=== PATIENT | male | born 1970 | race Caucasian/White ===

== ENCOUNTER 2020-09-30 15:17 | Inpatient (IN) | payer BC ==
[2020-09-30] MEDS ORDERED: Sodium Chloride 0.9% 10 ML Syringe FLUSH PRN (16:03)
[2020-09-30] MEDS ORDERED: Acetaminophen 325 MG Tab PO ONE (16:04)
--- NOTE | 2020-09-30 16:06 | EDM.PDOC ---
ED HPI GENERAL MEDICAL PROBLEM - General Chief Complaint: Fever Stated Complaint: SOB,FEVER,COUGH Time Seen by Provider: 09/30/20 16:01 Source of Information: Reports: Patient History Limitations: Reports: No Limitations - History of Present Illness INITIAL COMMENTS - FREE TEXT/NARRATIVE: 49-year-old male presents to the ED for evaluation of persistent fever post COVID-19 illness. Patient was diagnosed COVID-19 positive on September 16. He developed nasal congestion mild sore throat paroxysmal nonproductive cough generalized myalgia headache , fatigue and loss of appetite. He has not been at work for 14 days. He continues to run a fever particularly worse the last 48 hours. Mild chills after getting out of the shower this morning. Still has a mild nonproductive cough. He was seen in the clinic by Dr. Tamayo on September 24. Came off quarantine on September 28. The chest x- ray done at that time was negative for pneumonia. Patient was treated with cough medicine and albuterol metered-dose inhaler. He states his appetite has been good. He has had no diarrhea. He has no skin ulcers or sores. Up until Covid 19 illness he has been healthy. Onset: Sudden Onset Date: 09/16/20 (Diagnosed with COVID-19 illness.) Duration: Day(s):, Constant, Getting Worse (Versus persisting.) Location: Reports: Generalized (Normalized myalgia with headache), Other (High fever as high as 103 degrees.) Quality: Reports: Ache Severity: Moderate (Mild generalized myalgia.) Improves with: Reports: Medication (Fever come down slightly with Motrin but he had Motrin 2 hours before coming to the ED and he feels like he is 103 degrees on exam.) Worsens with: Reports: None Context: Denies: Activity, Exercise, Lifting, Sick Contact, Trauma, Other Associated Symptoms: Reports: Cough, Fever/Chills (Persistent high fever), Headaches ( occasional chills.), Malaise. 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 Motrin 2 hours before coming to the ED.) - Related Data Allergies Allergy/AdvReac Type Severity Reaction Status Date / Time No Known Allergies Allergy Verified 09/30/20 15:33 Past Medical History HEENT History: Reports: Impaired Vision Cardiovascular History: Reports: Hypertension Respiratory History: Reports: None Gastrointestinal History: Reports: None Genitourinary History: Reports: None Musculoskeletal History: Reports: None Neurological History: Reports: None Psychiatric History: Reports: None Endocrine/Metabolic History: Reports: None Immunologic History: Reports: None Oncologic (Cancer) History: Reports: None Dermatologic History: Reports: None - Infectious Disease History Infectious Disease History: Reports: Chicken Pox, Novel Coronavirus - Past Surgical History HEENT Surgical History: Reports: Adenoidectomy, Oral Surgery, Tonsillectomy GI Surgical History: Reports: None Social & Family History - Family History Family Medical History: No Pertinent Family History - Tobacco Use Tobacco Use Status *Q: Never Tobacco User - Caffeine Use Caffeine Use: Reports: None - Recreational Drug Use Recreational Drug Use: No - Living Situation & Occupation Living situation: Reports: Occupation: Employed ED ROS GENERAL - Review of Systems Review Of Systems: See Below Constitutional: Reports: Fever, Chills, Malaise, Weakness, Fatigue. Denies: Decreased Appetite HEENT: Reports: No Symptoms Respiratory: Reports: Shortness of Breath, Wheezing, Cough. Denies: Pleuritic Chest Pain, Sputum, Hemoptysis Cardiovascular: Reports: Chest Pain (Patient lightheadedness from coughing so hard.), Lightheadedness. Denies: No Symptoms, Blood Pressure Problem, Claudication, Dyspnea on Exertion, Edema, Orthopnea, Palpitations (Upper mid chest from coughing so much.) Endocrine: Reports: Fatigue GI/Abdominal: Reports: No Symptoms. Denies: Constipation, Diarrhea : Reports: No Symptoms Musculoskeletal: Reports: No Symptoms Skin: Reports: No Symptoms Neurological: Reports: Headache (Vaginal headaches.) Psychiatric: Reports: No Symptoms Hematologic/Lymphatic: Reports: No Symptoms Immunologic: Reports: No Symptoms ED EXAM, GENERAL - Physical Exam Exam: See Below Exam Limited By: No Limitations General Appearance: Alert, WD/WN, No Apparent Distress, Other (Very warm palpation such as 103 degrees clinically. Nurses occurred temperature is 37.5 but he feels much warmer than this. Heart rate is 105 at the bedside respiratory it is 28 with O2 sats of 94% on room air.) Eye Exam: Bilateral Eye: Normal Inspection (No scleral icterus or blepharal pallor.), PERRL Ears: Normal TMs Throat/Mouth: Normal Inspection, Normal Lips, Normal Oropharynx ( The remainder the oropharynx shows no signs of infection.), Other (Tongue is coated with a white substance like Maalox but he can remember anything that he would have eaten recently.) Head: Atraumatic, Normocephalic Neck: Normal Inspection, Supple, Non-Tender, Full Range of Motion. No: Carotid Bruit, Lymphadenopathy (L), Lymphadenopathy (R) Respiratory/Chest: No Respiratory Distress, Lungs Clear, Normal Breath Sounds, No Accessory Muscle Use, Chest Non-Tender, Rales (He has coarse crackles rales at both lung bases slightly worse on the left as compared to the right.). No: Rhonchi, Wheezing Cardiovascular: Normal Peripheral Pulses, No Edema, No Gallop (Resting tachycardia at the bedside 105 to 110/min.), No JVD, No Murmur, No Rub, Tachycardia Peripheral Pulses: 3+: Carotid (L), Carotid (R), Posterior Tibial (L), Posterior Tibial (R), Dorsalis Pedis (L), Dorsalis Pedis (R) GI/Abdominal: Normal Bowel Sounds, Soft, Non-Tender, No Organomegaly, No Mass, Pelvis Stable (Male) Exam: No Hernia, Normal Inspection Rectal (Males) Exam: Normal Exam Back Exam: Normal Inspection, Full Range of Motion Extremities: Normal Inspection, Normal Range of Motion, Non-Tender, No Pedal Edema Neurological: Alert, Oriented, CN II-XII Intact, Normal Cognition Psychiatric: Normal Affect, Normal Mood Skin Exam: Warm, Dry, Intact, Normal Color, No Rash #1 Interpretation EKG Date: 09/30/20 Time: 15:46 Rhythm: Other (Sinus tachycardia) Rate (Beats/Min): 105 [place]: LAD-Left [place] Deviation (Mild left axis deviation -13 degrees) P-Wave: Present QRS: Other (Early R wave transition consider right ventricular hypertrophy versus septal hypertrophy pattern) ST-T: Other (T wave flattening aVL nonspecific finding) QT: Normal EKG Interpretation Comments: Borderline ECG Course - Vital Signs Last Recorded V/S: Last Vital Signs Temp 37.5 C 09/30/20 15:37 Pulse 111 H 09/30/20 15:37 Resp 28 H 09/30/20 15:37 BP 128/78 09/30/20 15:37 Pulse Ox 93 L 09/30/20 15:37 - Orders/Labs/Meds Orders: Active Orders 24 hr Category Date Time Status EKG Documentation Completion [RC] STAT Care 09/30/20 16:01 Active Oxygen Therapy [RC] ASDIRECTED Care 09/30/20 16:32 Active Peripheral IV Care [RC] . DIRECTED Care 09/30/20 16:03 Active ABG [BLOOD GAS ARTERIAL] [BG] Stat Lab 09/30/20 16:23 Ordered CULTURE BLOOD [BC] Stat Lab 09/30/20 16:27 Received CULTURE BLOOD [BC] Stat Lab 09/30/20 16:40 Received URINALYSIS W/MICROSCOPIC [UA W/MICROSCOPIC] [URIN] Stat Lab 09/30/20 16:03 Ordered Sodium Chloride 0.9% [Normal Saline] 100 ml Med 09/30/20 17:15 Active IV ASDIRECTED Sodium Chloride 0.9% [Saline Flush] Med 09/30/20 17:15 Active 10 ml FLUSH ASDIRECTED Sodium Chloride 0.9% [Saline Flush] Med 09/30/20 16:03 Active 10 ml FLUSH ASDIRECTED PRN Blood Culture x2 Reflex Set [OM.PC] Stat Oth 09/30/20 16:03 Ordered Peripheral IV Insertion Adult [OM.PC] Stat Oth 09/30/20 16:03 Ordered Medication Orders Sodium Chloride (Normal Saline) 100 mls @ 60 mls/hr IV ASDIRECTED LEAH Last Admin: 09/30/20 17:40 Dose: 60 mls/hr Documented by: RAFAEL Sodium Chloride (Sodium Chloride 0.9% 10 Ml Syringe) 10 ml FLUSH ASDIRECTED PRN PRN Reason: Keep Vein Open Last Admin: 09/30/20 16:20 Dose: 10 ml Documented by: SUSY Sodium Chloride (Sodium Chloride 0.9% 10 Ml Syringe) 10 ml FLUSH ASDIRECTED LEAH Last Admin: 09/30/20 17:41 Dose: 10 ml Documented by: RAFAEL Labs: Laboratory Tests 09/30/20 09/30/20 09/30/20 Range/Units 15:45 15:45 15:45 WBC 6.48 (4.23-9.07) K/mm3 RBC 4.81 (4.63-6.08) M/mm3 Hgb 15.3 (13.7-17.5) gm/dl Hct 46.8 (40.1-51.0) % MCV 97.3 H (79.0-92.2) fl MCH 31.8 (25.7-32.2) pg MCHC 32.7 (32.2-35.5) g/dl RDW Std Deviation 45.1 H (35.1-43.9) fL Plt Count 315 (163-337) K/mm3 MPV 9.3 L (9.4-12.3) fl Neutrophils % (Manual) 82 H (40-60) % Band Neutrophils % 0 (0-10) % Lymphocytes % (Manual) 16 L (20-40) % Atypical Lymphs % 0 % Monocytes % (Manual) 2 (2-10) % Eosinophils % (Manual) 0 L (0.8-7.0) % Basophils % (Manual) 0 L (0.2-1.2) Platelet Estimate Adequate RBC Morph Comment Normal ESR (0-15) mm/hr PT 10.9 (9.7-12.0) SECONDS INR 1.02 APTT 28.7 (21.7-31.4) SECONDS D-Dimer, Quantitative (0.19-0.50) mg/L Sodium 144 (136-145) mEq/L Potassium 3.6 (3.5-5.1) mEq/L Chloride 101 (98-107) mEq/L Carbon Dioxide 30 (21-32) mEq/L Anion Gap 16.6 H (5-15) BUN 20 H (7-18) mg/dL Creatinine 1.4 H (0.7-1.3) mg/dL Est Cr Clr Drug Dosing 62.42 mL/min Estimated GFR (MDRD) 53 (>60) mL/min BUN/Creatinine Ratio 14.3 (14-18) Glucose 95 (74-106) mg/dL Calcium 9.0 (8.5-10.1) mg/dL Magnesium 2.2 (1.8-2.4) mg/dl Ferritin (26-388) ng/ml Total Bilirubin 0.7 (0.2-1.0) mg/dL AST 41 H (15-37) U/L ALT 39 (16-63) U/L Alkaline Phosphatase 39 L (46-116) U/L Lactate Dehydrogenase (85-227) U/L Troponin I < 0.017 (0.00-0.056) ng/mL C-Reactive Protein 26.3 H* (<1.0) mg/dL NT-Pro-B Natriuret Pep (0-125) pg/mL Total Protein 7.6 (6.4-8.2) g/dl Albumin 2.6 L (3.4-5.0) g/dl Globulin 5.0 gm/dL Albumin/Globulin Ratio 0.5 L (1-2) 09/30/20 09/30/20 09/30/20 Range/Units 15:45 15:45 15:45 WBC (4.23-9.07) K/mm3 RBC (4.63-6.08) M/mm3 Hgb (13.7-17.5) gm/dl Hct (40.1-51.0) % MCV (79.0-92.2) fl MCH (25.7-32.2) pg MCHC (32.2-35.5) g/dl RDW Std Deviation (35.1-43.9) fL Plt Count (163-337) K/mm3 MPV (9.4-12.3) fl Neutrophils % (Manual) (40-60) % Band Neutrophils % (0-10) % Lymphocytes % (Manual) (20-40) % Atypical Lymphs % % Monocytes % (Manual) (2-10) % Eosinophils % (Manual) (0.8-7.0) % Basophils % (Manual) (0.2-1.2) Platelet Estimate RBC Morph Comment ESR 70 H (0-15) mm/hr PT (9.7-12.0) SECONDS INR APTT (21.7-31.4) SECONDS D-Dimer, Quantitative (0.19-0.50) mg/L Sodium (136-145) mEq/L Potassium (3.5-5.1) mEq/L Chloride (98-107) mEq/L Carbon Dioxide (21-32) mEq/L Anion Gap (5-15) BUN (7-18) mg/dL Creatinine (0.7-1.3) mg/dL Est Cr Clr Drug Dosing mL/min Estimated GFR (MDRD) (>60) mL/min BUN/Creatinine Ratio (14-18) Glucose (74-106) mg/dL Calcium (8.5-10.1) mg/dL Magnesium (1.8-2.4) mg/dl Ferritin (26-388) ng/ml Total Bilirubin (0.2-1.0) mg/dL AST (15-37) U/L ALT (16-63) U/L Alkaline Phosphatase (46-116) U/L Lactate Dehydrogenase 386 H (85-227) U/L Troponin I (0.00-0.056) ng/mL C-Reactive Protein (<1.0) mg/dL NT-Pro-B Natriuret Pep 82 (0-125) pg/mL Total Protein (6.4-8.2) g/dl Albumin (3.4-5.0) g/dl Globulin gm/dL Albumin/Globulin Ratio (1-2) 09/30/20 09/30/20 Range/Units 15:45 15:45 WBC (4.23-9.07) K/mm3 RBC (4.63-6.08) M/mm3 Hgb (13.7-17.5) gm/dl Hct (40.1-51.0) % MCV (79.0-92.2) fl MCH (25.7-32.2) pg MCHC (32.2-35.5) g/dl RDW Std Deviation (35.1-43.9) fL Plt Count (163-337) K/mm3 MPV (9.4-12.3) fl Neutrophils % (Manual) (40-60) % Band Neutrophils % (0-10) % Lymphocytes % (Manual) (20-40) % Atypical Lymphs % % Monocytes % (Manual) (2-10) % Eosinophils % (Manual) (0.8-7.0) % Basophils % (Manual) (0.2-1.2) Platelet Estimate RBC Morph Comment ESR (0-15) mm/hr PT (9.7-12.0) SECONDS INR APTT (21.7-31.4) SECONDS D-Dimer, Quantitative 3.36 H (0.19-0.50) mg/L Sodium (136-145) mEq/L Potassium (3.5-5.1) mEq/L Chloride (98-107) mEq/L Carbon Dioxide (21-32) mEq/L Anion Gap (5-15) BUN (7-18) mg/dL Creatinine (0.7-1.3) mg/dL Est Cr Clr Drug Dosing mL/min Estimated GFR (MDRD) (>60) mL/min BUN/Creatinine Ratio (14-18) Glucose (74-106) mg/dL Calcium (8.5-10.1) mg/dL Magnesium (1.8-2.4) mg/dl Ferritin 1221 H (26-388) ng/ml Total Bilirubin (0.2-1.0) mg/dL AST (15-37) U/L ALT (16-63) U/L Alkaline Phosphatase (46-116) U/L Lactate Dehydrogenase (85-227) U/L Troponin I (0.00-0.056) ng/mL C-Reactive Protein (<1.0) mg/dL NT-Pro-B Natriuret Pep (0-125) pg/mL Total Protein (6.4-8.2) g/dl Albumin (3.4-5.0) g/dl Globulin gm/dL Albumin/Globulin Ratio (1-2) Meds: Medications Generic Name Dose Route Start Last Admin Trade Name Freq PRN Reason Stop Dose Admin Sodium Chloride 100 mls @ 60 mls/hr 09/30/20 17:15 09/30/20 17:40 Normal Saline IV 60 mls/hr ASDIRECTED LEAH Administration Sodium Chloride 10 ml 09/30/20 16:03 09/30/20 16:20 Sodium Chloride 0.9% 10 Ml Syringe FLUSH 10 ml ASDIRECTED PRN Administration Keep Vein Open Sodium Chloride 10 ml 09/30/20 17:15 09/30/20 17:41 Sodium Chloride 0.9% 10 Ml Syringe FLUSH 10 ml ASDIRECTED LEAH Administration Discontinued Medications Generic Name Dose Route Start Last Admin Trade Name Freq PRN Reason Stop Dose Admin Acetaminophen 975 mg 09/30/20 16:04 09/30/20 16:20 Acetaminophen 325 Mg Tab PO 09/30/20 16:05 975 mg ONETIME ONE Administration Iopamidol 100 ml 09/30/20 17:01 09/30/20 17:40 Iopamidol 755 Mg/Ml 100 Ml Bottle IVPUSH 09/30/20 17:02 100 ml ONETIME ONE Administration - Radiology Interpretation Free Text/Narrative:: 49-year-old male presents to the ED for evaluation of persistent cough almost to the point of emesis and passing out at times. This is post COVID-19 illness t hat was diagnosed on September 16. He is on day 14 of illness and is self quarantine. Cough remains nonproductive. He remains febrile however clinically he feels like 100 to 203 degrees. Nurses recorded temperature is 37.5 degrees. He took Motrin 600 mg 2 hours before coming to the ED in spite of this he is running a very high fever. He has a few crackles in both lung bases that is the only positive finding on examination other than the fever. He will have 2 view chest x-ray completed he will have routine labs collected as well as blood cultures x2. Urinalysis as well markers for inflammation will be repeated to include a BNP and magnesium. Given Tylenol 9 7 5 mg by mouth for further fever relief. - Re-Assessments/Exams Free Text/Narrative Re-Assessment/Exam: 09/30/20 16:49 chest x-ray done portably reveals infiltrates bilaterally involving all lobes of the lungs. This is compared with COVID-19 pneumonia. Cardiac silhouette appears normal. No evidence of pleural effusion. ABGs done on room air revealed a pH of 7.51 and a PCO2 of 32.2 PO2 is 54 sats are 88.6% on room air. Placed on 2 L of oxygen by nasal cannula to achieve O2 sats of 92%. Heart rate is 102 at rest. Blood pressure 142/89. I am going to await his lab test before subjecting him to dexamethasone and remdesivir which I feel is indicated for Covid 19 pneumonia. The question is to make sure since he is day on day 14 of illness that he does not have a bacterial component to his illness. 09/30/20 16:51 Lab just called over and indicated that his D-dimer is elevated at 3.36. The patient will therefore require a CT pulmonary angiogram to rule out PE. 09/30/20 17:21 WBC is 6.48 with 82% neutrophils on the manual differential. Hemoglobin is 15.3 with hematocrit of 46.8. MCV is mildly elevated at 97.3. Platelet count is normal at 315,000. An INR of 1.02 PTT is 28.7. D-dimer is 3.36. Sodium 144 the potassium of 3.6 chloride 101 with a bicarb of 30. Anion gap is 16.6. BUN is 20 with a creatinine of 1.4 and a GFR of 53 glucose is 95 with a calcium of 9.0 magnesium is 2.2 serum ferritin is elevated at 1221 bilirubin is 0.7 with an AST of 41 and ALT of 39. Alkaline phosphatase is normal at 39 . LDH is elevated at 386. Troponin I is less than 0.017. C- reactive protein is markedly elevated at 26.3. BNP is 82 with a total protein of 7.6 albumin fraction 2.6. 09/30/20 18:00: CT pulmonary angiogram has been completed. Pulmonary arteries are fairly well opacified. No filling defects are seen to indicate pulmonary embolism.. Thoracic aorta shows no aneurysm. Small mediastinal lymph nodes are seen believed to be within normal limits. No pericardial thickening is seen. Small portion of the visualized upper abdominal structures shows a minimal low- density lesion within the right lobe of the liver which is nonspecific but most likely represents minimal cyst. Lung window settings were reviewed which show diffuse pulmonary densities throughout both lungs. Very minimal pleural effusion is seen within the left lung base. Bone window settings were reviewed and no osseous findings are appreciated. Impression diffuse parenchymal opa cities compatible with clinical history of COVID-19 pneumonia. Minimal left- sided pleural effusion appreciated. No acute findings of pulmonary embolism. Minute minimal low-density area within the right lobe of the liver most likely representing a cyst. 09/30/20 18:22 Patient advised of the findings of the CT pulmonary angiogram. He will now be given dexamethasone 6 mg IV and remdesivir 200 mg IV. I will speak with Dr. Olguin on-call hospitalist with a view to admission to the hospital for COVID-19 illness treatment. Free Text/Narrative Re-Assessment/Exam: 09/30/20 18:28 I did speak with Dr. Olguin and patient will be admitted to the med surgery floor. Departure - Departure Time of Disposition: 18:36 Disposition: Admitted As Inpatient 64 Condition: Fair Clinical Impression: Hypoxia, Coronavirus infection, Viral pneumonia, Elevated d-dimer, Febrile illness - Discharge Information *PRESCRIPTION DRUG MONITORING PROGRAM REVIEWED*: Not Applicable *COPY OF PRESCRIPTION DRUG MONITORING REPORT IN PATIENT MALIA: Not Applicable Referrals: Jared Gandhi MD [Primary Care Provider] - Forms: ED Department Discharge Sepsis Event Note (ED) - Evaluation Sepsis Screening Result: No Definite Risk - Focused Exam Vital Signs: Vital Signs Temp Pulse Resp BP Pulse Ox 09/30/20 15:37 37.5 C 111 H 28 H 128/78 93 L 09/30/20 15:34 37.5 C 105 H 28 H 94 L - My Orders Last 24 Hours: My Active Orders 09/30/20 16:01 EKG Documentation Completion [RC] STAT 09/30/20 16:03 Peripheral IV Care [RC] . DIRECTED URINALYSIS W/MICROSCOPIC [UA W/MICROSCOPIC] [URIN] Stat Sodium Chloride 0.9% [Saline Flush] 10 ml FLUSH ASDIRECTED PRN Blood Culture x2 Reflex Set [OM.PC] Stat Peripheral IV Insertion Adult [OM.PC] Stat 09/30/20 16:23 ABG [BLOOD GAS ARTERIAL] [BG] Stat 09/30/20 16:27 CULTURE BLOOD [BC] Stat 09/30/20 16:32 Oxygen Therapy [RC] ASDIRECTED 09/30/20 16:40 CULTURE BLOOD [BC] Stat 09/30/20 17:15 Sodium Chloride 0.9% [Normal Saline] 100 ml IV ASDIRECTED Sodium Chloride 0.9% [Saline Flush] 10 ml FLUSH ASDIRECTED - Assessment/Plan Last 24 Hours: My Active Orders 09/30/20 16:01 EKG Documentation Completion [RC] STAT 09/30/20 16:03 Peripheral IV Care [RC] . DIRECTED URINALYSIS W/MICROSCOPIC [UA W/MICROSCOPIC] [URIN] Stat Sodium Chloride 0.9% [Saline Flush] 10 ml FLUSH ASDIRECTED PRN Blood Culture x2 Reflex Set [OM.PC] Stat Peripheral IV Insertion Adult [OM.PC] Stat 09/30/20 16:23 ABG [BLOOD GAS ARTERIAL] [BG] Stat 09/30/20 16:27 CULTURE BLOOD [BC] Stat 09/30/20 16:32 Oxygen Therapy [RC] ASDIRECTED 09/30/20 16:40 CULTURE BLOOD [BC] Stat 09/30/20 17:15 Sodium Chloride 0.9% [Normal Saline] 100 ml IV ASDIRECTED Sodium Chloride 0.9% [Saline Flush] 10 ml FLUSH ASDIRECTED
[2020-09-30] MEDS ORDERED: Iopamidol 755 Mg/ML 100 ML Bottle IVPUSH ONE (17:01)
[2020-09-30] MEDS ORDERED: Sodium Chloride 0.9% 10 ML Syringe FLUSH SCH (17:15)
[2020-09-30] MEDS ORDERED: Sodium Chloride 0.9% 100 ML IV SCH (17:15)
--- NOTE | 2020-09-30 17:58 | CT ---
CT pulmonary angiogram Technique: Multiple axial sections were obtained through the chest. Intravenous contrast was utilized. Study has been performed as a pulmonary angiogram protocol. Comparison: Prior chest x-ray performed earlier on the same day (4:12 PM). Findings: Pulmonary arteries are fairly well opacified. No filling defects are seen to indicate pulmonary embolism. Thoracic aorta shows no aneurysm. Small mediastinal lymph nodes are seen believed to be within normal limits. No pericardial thickening is seen. Small portion of the visualized upper abdominal structures shows a minimal low density lesion within the right lobe of the liver which is nonspecific but most likely represents minimal cyst. Lung window settings were reviewed which show diffuse pulmonary densities throughout both lungs. Very minimal pleural effusion is seen within the left base. Bone window settings were reviewed. No acute osseous finding is appreciated. Impression: 1. Diffuse parenchymal opacities compatible with clinical history of COVID pneumonia. Minimal left-sided pleural effusion is noted. 2. No findings of pulmonary embolism. 3. Minimal low density area within the right lobe of the liver most likely representing a minimal cyst. Diagnostic code #3
--- NOTE | 2020-09-30 17:58 | CR ---
Chest: 2 views of the chest were obtained. Comparison: No previous chest imaging is available. Prominent parenchymal density is noted within both sides of the chest. Heart size and mediastinum are normal. Bony structures are unremarkable. Impression: 1. Prominent increased density within both sides of the chest compatible with COVID pneumonia. Diagnostic code #3
[2020-09-30] MEDS ORDERED: Dexamethasone 10 MG/ML SDV IVPUSH ONE (18:18)
[2020-09-30] MEDS ORDERED: REMDESIVIR 200 MG in Sodium Chloride 0.9% 250 ML IV ONE (18:18)
[2020-09-30] MEDS ORDERED: Ondansetron 4 MG/2 ML SDV IV PRN (19:18)
[2020-09-30] MEDS ORDERED: Albuterol 0.083% 2.5 MG/3 ML Neb Soln NEB PRN (19:18)
[2020-09-30] MEDS ORDERED: Albuterol/Ipratropium 3.0-0.5 MG/3 ML Neb Soln NEB PRN (19:18)
[2020-09-30] MEDS ORDERED: Acetaminophen 325 MG Tab PO PRN (19:18)
[2020-09-30] MEDS ORDERED: Tocilizumab 400 MG/20 ML SDV IV ONE (19:20)
--- NOTE | 2020-09-30 19:35 | PCM.HP.2 ---
H&P History of Present Illness - General Date of Service: 09/30/20 Admit Problem/Dx: Admission Diagnosis/Problem Admission Diagnosis/Problem Hypoxia - History of Present Illness Initial Comments - Free Text/Narative: 49-year-old male with history of hypertension presents to the emergency department with worsening nonproductive cough. Patient states that he started getting mild cough and sore throat on September 16. Last Saturday, September 24 he was seen at the walk-in clinic and chest x-ray was performed which was negative. Rapid Covid testing was performed also which was negative. Apparently patient was called the next day secondary to radiology things some concerning findings and a repeat test on Saturday was positive for COVID-19. Patient was told on Saturday of this week by the health department that he was no longer quarantined. Patient states that he has been coughing severe enough to almost black out. He reported to have a fever of up to 103 today. He has had decreased appetite especially over the last couple of days. Since he has been in the emergency department he did receive dexamethasone and started on 3 L O2 via nasal cannula. He does feel much better and was able to eat dinner. Patient will be admitted for Covid pneumonia. CT angio of his chest, done because of an elevated D-dime r, was negative for PE, but showed diffuse parenchymal opacities compatible with clinical history of Covid pneumonia. Minimal left-sided pleural effusion noted. - Related Data Allergies/Adverse Reactions: Allergies Allergy/AdvReac Type Severity Reaction Status Date / Time No Known Allergies Allergy Verified 09/30/20 15:33 Home Medications: Home Meds Lisinopril/Hydrochlorothiazide [Lisinopril-HCTZ 10-12.5 MG] 1 tab PO DAILY 09/30/20 [History] Past Medical History HEENT History: Reports: Impaired Vision Cardiovascular History: Reports: Hypertension Respiratory History: Reports: None Gastrointestinal History: Reports: None Genitourinary History: Reports: None Musculoskeletal History: Reports: None Neurological History: Reports: None Psychiatric History: Reports: None Endocrine/Metabolic History: Reports: None Immunologic History: Reports: None Oncologic (Cancer) History: Reports: None Dermatologic History: Reports: None - Infectious Disease History Infectious Disease History: Reports: Chicken Pox, Novel Coronavirus - Past Surgical History HEENT Surgical History: Reports: Adenoidectomy, Oral Surgery, Tonsillectomy GI Surgical History: Reports: None Social & Family History - Family History Family Medical History: No Pertinent Family History - Tobacco Use Tobacco Use Status *Q: Never Tobacco User - Caffeine Use Caffeine Use: Reports: None - Recreational Drug Use Recreational Drug Use: No - Living Situation & Occupation Living situation: Reports: Occupation: Employed H&P Review of Systems - Review of Systems: Review Of Systems: Comprehensive ROS is negative, except as noted in HPI. Exam - Exam Exam: See Below - Vital Signs Vital Signs: Last Vital Signs Temp 98.5 F 09/30/20 19: Pulse 91 09/30/20 19:01 Resp 18 09/30/20 19:01 BP 122/72 09/30/20 19: Pulse Ox 94 L 09/30/20 19: Weight: 185 lb 9.6 oz - Exam Quality Assessment: Supplemental Oxygen General: Alert, Oriented, 4 HEENT: Conjunctiva Clear, Mucosa Moist & [place], Normal Nasal Septum Neck: Supple, Trachea Midline, 2 Lungs: Normal Respiratory Effort, Crackles (Throughout both lung romero) Cardiovascular: Regular Rate, Regular Rhythm GI/Abdominal Exam: Normal Bowel Sounds, Soft, Non-Tender, No Organomegaly, No Distention, No Abnormal Bruit, No Mass Back Exam: Normal Inspection, Full Range of Motion, NT Extremities: Normal Inspection, Normal Range of Motion, Non-Tender, No Pedal Edema, Normal Capillary Refill Peripheral Pulses: 2+: Posterior Tibial (L), Posterior Tibial (R), Dorsalis Pedis (L), Dorsalis Pedis (R) Skin: Warm, Dry, Intact Neuro Extensive - Mental Status: Alert, Oriented x3, Normal Mood/Affect, Normal Cognition, Memory Intact Neuro Extensive - Motor, Sensory, Reflexes: CN II-XII Intact, Normal Gait Psychiatric: Alert, Normal Affect, Normal Mood - Patient Data Lab Results Last 24 hrs: Laboratory Results - last 24 hr 09/30/20 09/30/20 09/30/20 Range/Units 15:45 15:45 15:45 WBC 6.48 (4.23-9.07) K/mm3 RBC 4.81 (4.63-6.08) M/mm3 Hgb 15.3 (13.7-17.5) gm/dl Hct 46.8 (40.1-51.0) % MCV 97.3 H (79.0-92.2) fl MCH 31.8 (25.7-32.2) pg MCHC 32.7 (32.2-35.5) g/dl RDW Std Deviation 45.1 H (35.1-43.9) fL Plt Count 315 (163-337) K/mm3 MPV 9.3 L (9.4-12.3) fl Neutrophils % (Manual) 82 H (40-60) % Band Neutrophils % 0 (0-10) % Lymphocytes % (Manual) 16 L (20-40) % Atypical Lymphs % 0 % Monocytes % (Manual) 2 (2-10) % Eosinophils % (Manual) 0 L (0.8-7.0) % Basophils % (Manual) 0 L (0.2-1.2) Platelet Estimate Adequate RBC Morph Comment Normal ESR (0-15) mm/hr PT 10.9 (9.7-12.0) SECONDS INR 1.02 APTT 28.7 (21.7-31.4) SECONDS D-Dimer, Quantitative (0.19-0.50) mg/L Puncture Site ABG pH (7.35-7.45) ABG pCO2 (35.0-45.0) mmHg ABG pO2 (80.0-100.0) mmHg ABG HCO3 (22.0-26.0) meq/L ABG O2 Saturation (96.0-97.0) % ABG Base Excess (-2-2.0) Shan Test O2 Delivery Device Oxygen Flow Rate Sodium 144 (136-145) mEq/L Potassium 3.6 (3.5-5.1) mEq/L Chloride 101 (98-107) mEq/L Carbon Dioxide 30 (21-32) mEq/L Anion Gap 16.6 H (5-15) BUN 20 H (7-18) mg/dL Creatinine 1.4 H (0.7-1.3) mg/dL Est Cr Clr Drug Dosing 62.42 mL/min Estimated GFR (MDRD) 53 (>60) mL/min BUN/Creatinine Ratio 14.3 (14-18) Glucose 95 (74-106) mg/dL Calcium 9.0 (8.5-10.1) mg/dL Magnesium 2.2 (1.8-2.4) mg/dl Ferritin (26-388) ng/ml Total Bilirubin 0.7 (0.2-1.0) mg/dL AST 41 H (15-37) U/L ALT 39 (16-63) U/L Alkaline Phosphatase 39 L (46-116) U/L Lactate Dehydrogenase (85-227) U/L Troponin I < 0.017 (0.00-0.056) ng/mL C-Reactive Protein 26.3 H* (<1.0) mg/dL NT-Pro-B Natriuret Pep (0-125) pg/mL Total Protein 7.6 (6.4-8.2) g/dl Albumin 2.6 L (3.4-5.0) g/dl Globulin 5.0 gm/dL Albumin/Globulin Ratio 0.5 L (1-2) 09/30/20 09/30/20 09/30/20 Range/Units 15:45 15:45 15:45 WBC (4.23-9.07) K/mm3 RBC (4.63-6.08) M/mm3 Hgb (13.7-17.5) gm/dl Hct (40.1-51.0) % MCV (79.0-92.2) fl MCH (25.7-32.2) pg MCHC (32.2-35.5) g/dl RDW Std Deviation (35.1-43.9) fL Plt Count (163-337) K/mm3 MPV (9.4-12.3) fl Neutrophils % (Manual) (40-60) % Band Neutrophils % (0-10) % Lymphocytes % (Manual) (20-40) % Atypical Lymphs % % Monocytes % (Manual) (2-10) % Eosinophils % (Manual) (0.8-7.0) % Basophils % (Manual) (0.2-1.2) Platelet Estimate RBC Morph Comment ESR 70 H (0-15) mm/hr PT (9.7-12.0) SECONDS INR APTT (21.7-31.4) SECONDS D-Dimer, Quantitative (0.19-0.50) mg/L Puncture Site ABG pH (7.35-7.45) ABG pCO2 (35.0-45.0) mmHg ABG pO2 (80.0-100.0) mmHg ABG HCO3 (22.0-26.0) meq/L ABG O2 Saturation (96.0-97.0) % ABG Base Excess (-2-2.0) Shan Test O2 Delivery Device Oxygen Flow Rate Sodium (136-145) mEq/L Potassium (3.5-5.1) mEq/L Chloride (98-107) mEq/L Carbon Dioxide (21-32) mEq/L Anion Gap (5-15) BUN (7-18) mg/dL Creatinine (0.7-1.3) mg/dL Est Cr Clr Drug Dosing mL/min Estimated GFR (MDRD) (>60) mL/min BUN/Creatinine Ratio (14-18) Glucose (74-106) mg/dL Calcium (8.5-10.1) mg/dL Magnesium (1.8-2.4) mg/dl Ferritin (26-388) ng/ml Total Bilirubin (0.2-1.0) mg/dL AST (15-37) U/L ALT (16-63) U/L Alkaline Phosphatase (46-116) U/L Lactate Dehydrogenase 386 H (85-227) U/L Troponin I (0.00-0.056) ng/mL C-Reactive Protein (<1.0) mg/dL NT-Pro-B Natriuret Pep 82 (0-125) pg/mL Total Protein (6.4-8.2) g/dl Albumin (3.4-5.0) g/dl Globulin gm/dL Albumin/Globulin Ratio (1-2) 09/30/20 09/30/20 09/30/20 Range/Units 15:45 15:45 16:23 WBC (4.23-9.07) K/mm3 RBC (4.63-6.08) M/mm3 Hgb (13.7-17.5) gm/dl Hct (40.1-51.0) % MCV (79.0-92.2) fl MCH (25.7-32.2) pg MCHC (32.2-35.5) g/dl RDW Std Deviation (35.1-43.9) fL Plt Count (163-337) K/mm3 MPV (9.4-12.3) fl Neutrophils % (Manual) (40-60) % Band Neutrophils % (0-10) % Lymphocytes % (Manual) (20-40) % Atypical Lymphs % % Monocytes % (Manual) (2-10) % Eosinophils % (Manual) (0.8-7.0) % Basophils % (Manual) (0.2-1.2) Platelet Estimate RBC Morph Comment ESR (0-15) mm/hr PT (9.7-12.0) SECONDS INR APTT (21.7-31.4) SECONDS D-Dimer, Quantitative 3.36 H (0.19-0.50) mg/L Puncture Site Lt radial ABG pH 7.51 H (7.35-7.45) ABG pCO2 32.2 L (35.0-45.0) mmHg ABG pO2 54.0 L (80.0-100.0) mmHg ABG HCO3 25.5 (22.0-26.0) meq/L ABG O2 Saturation 88.6 L (96.0-97.0) % ABG Base Excess 3.4 H (-2-2.0) Shan Test Positive O2 Delivery Device Room air Oxygen Flow Rate 2.0 Sodium (136-145) mEq/L Potassium (3.5-5.1) mEq/L Chloride (98-107) mEq/L Carbon Dioxide (21-32) mEq/L Anion Gap (5-15) BUN (7-18) mg/dL Creatinine (0.7-1.3) mg/dL Est Cr Clr Drug Dosing mL/min Estimated GFR (MDRD) (>60) mL/min BUN/Creatinine Ratio (14-18) Glucose (74-106) mg/dL Calcium (8.5-10.1) mg/dL Magnesium (1.8-2.4) mg/dl Ferritin 1221 H (26-388) ng/ml Total Bilirubin (0.2-1.0) mg/dL AST (15-37) U/L ALT (16-63) U/L Alkaline Phosphatase (46-116) U/L Lactate Dehydrogenase (85-227) U/L Troponin I (0.00-0.056) ng/mL C-Reactive Protein (<1.0) mg/dL NT-Pro-B Natriuret Pep (0-125) pg/mL Total Protein (6.4-8.2) g/dl Albumin (3.4-5.0) g/dl Globulin gm/dL Albumin/Globulin Ratio (1-2) Result Diagrams: 09/30/20 15:45 09/30/20 15:45 Sepsis Event Note - Evaluation Sepsis Screening Result: No Definite Risk - Focused Exam Vital Signs: Vital Signs Temp Pulse Resp BP Pulse Ox 09/30/20 19:01 98.5 F 91 18 122/72 94 L 09/30/20 15:37 99.5 F 111 H 28 H 128/78 93 L 09/30/20 15:34 99.5 F 105 H 28 H 94 L - Problem List (1) Pneumonia due to 2019-nCoV SNOMED Code(s): 646473299713494358 ICD Code: U07.1 - COVID-19; J12.82 - PNEUMONIA DUE TO CORONAVIRUS DISEASE 2018 Status: Acute Current Visit: Yes (2) Hypertension SNOMED Code(s): 57308547 ICD Code: I10 - ESSENTIAL (PRIMARY) HYPERTENSION Status: Acute Current Visit: Yes (3) Coronavirus infection SNOMED Code(s): 740282041 ICD Code: B34.2 - CORONAVIRUS INFECTION, UNSPECIFIED Status: Acute Current Visit: Yes (4) Hypoxia SNOMED Code(s): 332302970 ICD Code: R09.02 - HYPOXEMIA Status: Acute Current Visit: Yes Problem List Initiated/Reviewed/Updated: Yes Orders Last 24hrs: Active Orders 24 hr Category Date Time Status Admission Status [Patient Status] [ADT] Routine ADT 09/30/20 18:32 Active EKG Documentation Completion [RC] STAT Care 09/30/20 16:01 Active Oxygen Therapy [RC] ASDIRECTED Care 09/30/20 16:32 Active Oxygen Therapy [RC] PRN Care 09/30/20 19:17 Ordered Peripheral IV Care [RC] . DIRECTED Care 09/30/20 16:03 Active RT Aerosol Therapy [RC] ASDIRECTED Care 09/30/20 19:20 Ordered Up ad Yoanna [RC] ASDIRECTED Care 09/30/20 19:17 Ordered VTE/DVT Education [RC] PER UNIT ROUTINE Care 09/30/20 19:17 Ordered Vital Signs [RC] Q4H Care 09/30/20 19:17 Ordered Regular Diet [DIET] Diet 10/01/20 Breakfast Ordered BASIC METABOLIC PANEL,BMP [CHEM] AM Lab 10/01/20 05:11 Ordered C-REACTIVE PROTEIN [CHEM] AM Lab 10/01/20 05:11 Ordered CBC WITH AUTO DIFF [HEME] AM Lab 10/01/20 05:11 Ordered CULTURE BLOOD [BC] Stat Lab 09/30/20 16:27 Received CULTURE BLOOD [BC] Stat Lab 09/30/20 16:40 Received HEPATIC FUNCTION PANEL,HFP [CHEM] DAILY Lab 10/01/20 18:30 Ordered HEPATIC FUNCTION PANEL,HFP [CHEM] DAILY Lab 10/02/20 18:30 Ordered HEPATIC FUNCTION PANEL,HFP [CHEM] DAILY Lab 10/03/20 18:30 Ordered HEPATIC FUNCTION PANEL,HFP [CHEM] DAILY Lab 10/04/20 18:30 Ordered HEPATIC FUNCTION PANEL,HFP [CHEM] Stat Lab 09/30/20 18:18 Ordered MAGNESIUM [CHEM] AM Lab 10/01/20 05:11 Ordered URINALYSIS W/MICROSCOPIC [UA W/MICROSCOPIC] [URIN] Stat Lab 09/30/20 16:03 Ordered Acetaminophen [TylenoL] Med 09/30/20 19:18 Ordered 975 mg PO Q6H PRN Albuterol [Proventil Neb Soln] Med 09/30/20 19:18 Ordered 2.5 mg NEB Q2H PRN Albuterol/Ipratropium [DuoNeb 3.0-0.5 MG/3 ML] Med 09/30/20 19:18 Ordered 3 ml NEB Q4H PRN Cholecalciferol (Vitamin D3) [Vitamin D3] Med 10/01/20 09:00 Ordered 5,000 unit PO DAILY Enoxaparin [Lovenox] Med 10/01/20 09:00 Ordered 40 mg SUBCUT DAILY Famotidine [Pepcid] Med 09/30/20 21:00 Ordered 20 mg PO BID Lisinopril/Hydrochlorothiazide Med 10/01/20 09:00 Ordered 1 tab PO DAILY Melatonin Med 09/30/20 21:00 Ordered 9 mg PO BEDTIME Ondansetron [Zofran] Med 09/30/20 19:18 Ordered 4 mg IV Q4H PRN Remdesivir 100 mg Med 10/01/20 18:00 Ordered Sodium Chloride 0.9% [Normal Saline] 100 ml IV Q24H Sodium Chloride 0.9% [Normal Saline] 100 ml Med 09/30/20 17:15 Active IV ASDIRECTED Sodium Chloride 0.9% [Saline Flush] Med 09/30/20 17:15 Active 10 ml FLUSH ASDIRECTED Sodium Chloride 0.9% [Saline Flush] Med 09/30/20 16:03 Active 10 ml FLUSH ASDIRECTED PRN Tocilizumab [Actemra] Med 09/30/20 19:20 Once 600 mg IV ONETIME ONE Zinc Sulfate [Zincate] Med 10/01/20 09:00 Ordered 220 mg PO DAILY dexAMETHasone Med 10/01/20 09:00 Ordered 6 mg PO Q24H Blood Culture x2 Reflex Set [OM.PC] Stat Ot 09/30/20 16:03 Ordered Peripheral IV Insertion Adult [OM.PC] Stat Ot 09/30/20 16:03 Ordered Resuscitation Status Routine Resus Stat 09/30/20 19:17 Ordered Medication Orders Acetaminophen (Acetaminophen 325 Mg Tab) 975 mg PO Q6H PRN PRN Reason: Pain (Mild 1-3)/fever Albuterol (Albuterol 0.083% 2.5 Mg/3 Ml Neb Soln) 2.5 mg NEB Q2H PRN PRN Reason: Shortness Of Breath/wheezing Albuterol/Ipratropium (Albuterol/Ipratropium 3.0-0.5 Mg/3 Ml Neb Soln) 3 ml NEB Q4H PRN PRN Reason: Shortness Of Breath/wheezing Cholecalciferol (Cholecalciferol (Vitamin D3) 5,000 Unit Cap) 5,000 unit PO DAILY [facility] Dexamethasone (Dexamethasone 4 Mg Tab) 6 mg PO Q24H [facility] Stop: 10/09/20 09:01 Enoxaparin Sodium (Enoxaparin 40 Mg/0.4 Ml Syringe) 40 mg SUBCUT DAILY [facility] Famotidine (Famotidine 20 Mg Tab) 20 mg PO BID [facility] Sodium Chloride (Normal Saline) 100 mls @ 60 mls/hr IV ASDIRECTED LEAH Last Admin: 09/30/20 17:40 Dose: 60 mls/hr Documented by: BUSCGRE Remdesivir 100 mg/ Sodium (Chloride) 100 mls @ 100 mls/hr IV Q24H [facility] Stop: 10/04/20 18:59 Melatonin (Melatonin 3 Mg Tab) 9 mg PO BEDTIME [facility] Non-Formulary Medication (Lisinopril/Hydrochlorothiazide) 1 tab PO DAILY [facility] Ondansetron HCl (Ondansetron 4 Mg/2 Ml Sdv) 4 mg IV Q4H PRN PRN Reason: Nausea/Vomiting Sodium Chloride (Sodium Chloride 0.9% 10 Ml Syringe) 10 ml FLUSH ASDIRECTED PRN PRN Reason: Keep Vein Open Last Admin: 09/30/20 16:20 Dose: 10 ml Documented by: SUSY Sodium Chloride (Sodium Chloride 0.9% 10 Ml Syringe) 10 ml FLUSH ASDIRECTED LEAH Last Admin: 09/30/20 17:41 Dose: 10 ml Documented by: RAFAEL Tocilizumab (Tocilizumab 400 Mg/20 Ml Sdv) 600 mg IV ONETIME ONE Stop: 09/30/20 19:21 Zinc Sulfate (Zinc Sulfate 220 Mg Cap) 220 mg PO DAILY [facility] Assessment/Plan Comment:: Assessment 49-year-old male with 14-day history of COVID-19 symptoms diagnosed 5 days ago and released by [facility] presents to the emergency department with hypoxemia and severe nonproductive cough. Patient's risk factors include hypertension. Covid infection Viral pneumonia Hypoxemia * 14-day history of symptoms * 5 days post positive test * Started on remdesivir and dexamethasone in the emergency department * WBC 6.48, CRP 26.3, D-dimer 3.36, ferritin 1221, LDH 386, albumin low at 2.6, * Currently on 3 L nasal cannula to keep SPO2 in the low 90s Hypertension Abnormal renal function * On lisinopril and hydrochlorothiazide at home * Blood pressure well controlled in the emergency department in the 120s over 70s * Creatinine 1.4, estimated GFR 53. Unknown duration of renal insufficiency Plan * Admit to medical floor * Remdesivir, dexamethasone * Actemra 600 mg IV x1 * Rocephin 2 g daily x5 days, Zithromax 500 mg IV daily x3 * Pepcid, melatonin, zinc, vitamin D * As needed albuterol and DuoNeb * FiO2 to keep SPO2 greater than 87% * Follow CBC, CMP, mag, C-reactive protein, and D-dimer * VTE prophylaxis with Lovenox 40 mg subcu daily * CODE STATUS full code - Mortality Measure Prognosis:: Good
[2020-09-30] MEDS: Famotidine 20 MG Tab PO SCH (20:49)
[2020-09-30] MEDS: cefTRIAXone 2 GM in Sodium Chloride 0.9% 100 ML IV SCH (20:49)
[2020-09-30] MEDS: Azithromycin 500 MG in Sodium Chloride 0.9% 250 ML IV SCH (20:49)
[2020-09-30] MEDS: Melatonin 3 MG Tab PO SCH (20:49)
[2020-10-01] MEDS ORDERED: Enoxaparin 40 MG/0.4 ML Syringe SUBCUT SCH (09:00)
[2020-10-01] MEDS ORDERED: Non-Formulary Medication 1 Each (Lisinopril/Hydrochlorothiazide 1 TAB Tablet) PO SCH (09:00)
[2020-10-01] MEDS ORDERED: Dexamethasone 4 MG Tab PO SCH (09:00)
[2020-10-01 09:38] LABS: VITAMIN D,25-HYDROXY 11.4 ng/ml (30.0-100.0)
[2020-10-01] MEDS: Cholecalciferol (Vitamin D3) 5,000 UNIT Cap PO SCH (09:41)
[2020-10-01] MEDS: Lisinopril 10 MG Tab PO SCH (09:41)
[2020-10-01] MEDS: Hydrochlorothiazide 12.5 MG Cap PO SCH (09:42)
[2020-10-01] MEDS: Zinc Sulfate 220 MG Cap PO SCH (09:42)
[2020-10-01] MEDS: Famotidine 20 MG Tab PO SCH ×2 (09:43→21:22)
[2020-10-01] MEDS: Enoxaparin 40 MG/0.4 ML Syringe SUBCUT SCH ×2 (11:25→21:23)
[2020-10-01] MEDS: Dexamethasone 4 MG Tab PO SCH ×2 (11:26→21:21)
--- NOTE | 2020-10-01 16:38 | PCM.PN ---
- General Info Date of Service: 10/01/20 Admission Dx/Problem (Free Text): Admission Diagnosis/Problem Admission Diagnosis/Problem Hypoxia Subjective Update: 49-year-old male with history of hypertension presents to the emergency department with worsening nonproductive cough. Patient states that he started getting mild cough and sore throat on September 16. Last Saturday, September 24 he was seen at the walk-in clinic and chest x-ray was performed which was negative. R apid Covid testing was performed also which was negative. Apparently patient was called the next day secondary to radiology things some concerning findings and a repeat test on Saturday was positive for COVID-19. Patient does not have any new complaints. Denies nausea, vomiting, diarrhea, fever, or chills. He is now on 3 L D-dimer 3.36, CRP 24.3 Creatinine 1.0 - Review of Systems General: Reports: Fatigue, Malaise HEENT: Reports: No Symptoms Pulmonary: Reports: Shortness of Breath Cardiovascular: Reports: No Symptoms Gastrointestinal: Reports: No Symptoms Genitourinary: Reports: No Symptoms Musculoskeletal: Reports: No Symptoms Skin: Reports: No Symptoms Neurological: Reports: No Symptoms Psychiatric: Reports: No Symptoms - Patient Data Vitals - Most Recent: Last Vital Signs Temp 36.5 C 10/01/20 15:26 Pulse 83 10/01/20 15:26 Resp 16 10/01/20 15:26 BP 119/75 10/01/20 15:26 Pulse Ox 95 10/01/20 15:26 Weight - Most Recent: 83.688 kg I&O - Last 24 Hours: Intake & Output 10/01/20 10/01/20 10/01/20 06:59 14:59 22:59 Intake Total 360 180 800 Output Total 775 300 Balance -415 180 500 Lab Results Last 24 Hours: Laboratory Results - last 24 hr 09/30/20 09/30/20 09/30/20 Range/Units 15:45 15:45 15:45 WBC 6.48 (4.23-9.07) K/mm3 RBC 4.81 (4.63-6.08) M/mm3 Hgb 15.3 (13.7-17.5) gm/dl Hct 46.8 (40.1-51.0) % MCV 97.3 H (79.0-92.2) fl MCH 31.8 (25.7-32.2) pg MCHC 32.7 (32.2-35.5) g/dl RDW Std Deviation 45.1 H (35.1-43.9) fL Plt Count 315 (163-337) K/mm3 MPV 9.3 L (9.4-12.3) fl Neut % (Auto) (34.0-67.9) % Lymph % (Auto) (21.8-53.1) % [place] % (Auto) (5.3-12.2) % Eos % (Auto) (0.8-7.0) Baso % (Auto) (0.1-1.2) % Neut # (Auto) (1.78-5.38) K/mm3 Lymph # (Auto) (1.32-3.57) K/mm3 [place] # (Auto) (0.30-0.82) K/mm3 Eos # (Auto) (0.04-0.54) K/mm3 Baso # (Auto) (0.01-0.08) K/mm3 Neutrophils % (Manual) 82 H (40-60) % Band Neutrophils % 0 (0-10) % Lymphocytes % (Manual) 16 L (20-40) % Atypical Lymphs % 0 % Monocytes % (Manual) 2 (2-10) % Eosinophils % (Manual) 0 L (0.8-7.0) % Basophils % (Manual) 0 L (0.2-1.2) Manual Slide Review Platelet Estimate Adequate RBC Morph Comment Normal ESR 70 H (0-15) mm/hr D-Dimer, Quantitative (0.19-0.50) mg/L Puncture Site ABG pH (7.35-7.45) ABG pCO2 (35.0-45.0) mmHg ABG pO2 (80.0-100.0) mmHg ABG HCO3 (22.0-26.0) meq/L ABG O2 Saturation (96.0-97.0) % ABG Base Excess (-2-2.0) Shan Test O2 Delivery Device Oxygen Flow Rate Sodium 144 (136-145) mEq/L Potassium 3.6 (3.5-5.1) mEq/L Chloride 101 (98-107) mEq/L Carbon Dioxide 30 (21-32) mEq/L Anion Gap 16.6 H (5-15) BUN 20 H (7-18) mg/dL Creatinine 1.4 H (0.7-1.3) mg/dL Est Cr Clr Drug Dosing 62.42 mL/min Estimated GFR (MDRD) 53 (>60) mL/min BUN/Creatinine Ratio 14.3 (14-18) Glucose 95 (74-106) mg/dL Calcium 9.0 (8.5-10.1) mg/dL Magnesium 2.2 (1.8-2.4) mg/dl Ferritin (26-388) ng/ml Total Bilirubin 0.7 (0.2-1.0) mg/dL Direct Bilirubin (0.0-0.2) mg/dl Indirect Bilirubin AST 41 H (15-37) U/L ALT 39 (16-63) U/L Alkaline Phosphatase 39 L (46-116) U/L Lactate Dehydrogenase (85-227) U/L Troponin I < 0.017 (0.00-0.056) ng/mL C-Reactive Protein 26.3 H* (<1.0) mg/dL NT-Pro-B Natriuret Pep (0-125) pg/mL Total Protein 7.6 (6.4-8.2) g/dl Albumin 2.6 L (3.4-5.0) g/dl Globulin 5.0 gm/dL Albumin/Globulin Ratio 0.5 L (1-2) Vitamin D 25-Hydroxy (30.0-100.0) ng/ml Urine Color (Yellow) Urine Appearance (Clear) Urine pH (5.0-8.0) Ur Specific [place] (1.005-1.030) Urine Protein (Negative) Urine Glucose (UA) (Negative) Urine Ketones (Negative) Urine Occult Blood (Negative) Urine Nitrite (Negative) Urine Bilirubin (Negative) Urine Urobilinogen (0.2-1.0) Ur Leukocyte Esterase (Negative) Urine RBC (0-5) /hpf Urine WBC (0-5) /hpf Ur Squamous Epith Cells (0-5) /hpf Urine Bacteria (FEW) /hpf Urine Mucus (FEW) /hpf 09/30/20 09/30/20 09/30/20 Range/Units 15:45 15:45 15:45 WBC (4.23-9.07) K/mm3 RBC (4.63-6.08) M/mm3 Hgb (13.7-17.5) gm/dl Hct (40.1-51.0) % MCV (79.0-92.2) fl MCH (25.7-32.2) pg MCHC (32.2-35.5) g/dl RDW Std Deviation (35.1-43.9) fL Plt Count (163-337) K/mm3 MPV (9.4-12.3) fl Neut % (Auto) (34.0-67.9) % Lymph % (Auto) (21.8-53.1) % [place] % (Auto) (5.3-12.2) % Eos % (Auto) (0.8-7.0) Baso % (Auto) (0.1-1.2) % Neut # (Auto) (1.78-5.38) K/mm3 Lymph # (Auto) (1.32-3.57) K/mm3 [place] # (Auto) (0.30-0.82) K/mm3 Eos # (Auto) (0.04-0.54) K/mm3 Baso # (Auto) (0.01-0.08) K/mm3 Neutrophils % (Manual) (40-60) % Band Neutrophils % (0-10) % Lymphocytes % (Manual) (20-40) % Atypical Lymphs % % Monocytes % (Manual) (2-10) % Eosinophils % (Manual) (0.8-7.0) % Basophils % (Manual) (0.2-1.2) Manual Slide Review Platelet Estimate RBC Morph Comment ESR (0-15) mm/hr D-Dimer, Quantitative (0.19-0.50) mg/L Puncture Site ABG pH (7.35-7.45) ABG pCO2 (35.0-45.0) mmHg ABG pO2 (80.0-100.0) mmHg ABG HCO3 (22.0-26.0) meq/L ABG O2 Saturation (96.0-97.0) % ABG Base Excess (-2-2.0) Shan Test O2 Delivery Device Oxygen Flow Rate Sodium (136-145) mEq/L Potassium (3.5-5.1) mEq/L Chloride (98-107) mEq/L Carbon Dioxide (21-32) mEq/L Anion Gap (5-15) BUN (7-18) mg/dL Creatinine (0.7-1.3) mg/dL Est Cr Clr Drug Dosing mL/min Estimated GFR (MDRD) (>60) mL/min BUN/Creatinine Ratio (14-18) Glucose (74-106) mg/dL Calcium (8.5-10.1) mg/dL Magnesium (1.8-2.4) mg/dl Ferritin 1221 H (26-388) ng/ml Total Bilirubin (0.2-1.0) mg/dL Direct Bilirubin (0.0-0.2) mg/dl Indirect Bilirubin AST (15-37) U/L ALT (16-63) U/L Alkaline Phosphatase (46-116) U/L Lactate Dehydrogenase 386 H (85-227) U/L Troponin I (0.00-0.056) ng/mL C-Reactive Protein (<1.0) mg/dL NT-Pro-B Natriuret Pep 82 (0-125) pg/mL Total Protein (6.4-8.2) g/dl Albumin (3.4-5.0) g/dl Globulin gm/dL Albumin/Globulin Ratio (1-2) Vitamin D 25-Hydroxy (30.0-100.0) ng/ml Urine Color (Yellow) Urine Appearance (Clear) Urine pH (5.0-8.0) Ur Specific [place] (1.005-1.030) Urine Protein (Negative) Urine Glucose (UA) (Negative) Urine Ketones (Negative) Urine Occult Blood (Negative) Urine Nitrite (Negative) Urine Bilirubin (Negative) Urine Urobilinogen (0.2-1.0) Ur Leukocyte Esterase (Negative) Urine RBC (0-5) /hpf Urine WBC (0-5) /hpf Ur Squamous Epith Cells (0-5) /hpf Urine Bacteria (FEW) /hpf Urine Mucus (FEW) /hpf 09/30/20 09/30/20 09/30/20 Range/Units 15:45 15:45 16:23 WBC (4.23-9.07) K/mm3 RBC (4.63-6.08) M/mm3 Hgb (13.7-17.5) gm/dl Hct (40.1-51.0) % MCV (79.0-92.2) fl MCH (25.7-32.2) pg MCHC (32.2-35.5) g/dl RDW Std Deviation (35.1-43.9) fL Plt Count (163-337) K/mm3 MPV (9.4-12.3) fl Neut % (Auto) (34.0-67.9) % Lymph % (Auto) (21.8-53.1) % [place] % (Auto) (5.3-12.2) % Eos % (Auto) (0.8-7.0) Baso % (Auto) (0.1-1.2) % Neut # (Auto) (1.78-5.38) K/mm3 Lymph # (Auto) (1.32-3.57) K/mm3 [place] # (Auto) (0.30-0.82) K/mm3 Eos # (Auto) (0.04-0.54) K/mm3 Baso # (Auto) (0.01-0.08) K/mm3 Neutrophils % (Manual) (40-60) % Band Neutrophils % (0-10) % Lymphocytes % (Manual) (20-40) % Atypical Lymphs % % Monocytes % (Manual) (2-10) % Eosinophils % (Manual) (0.8-7.0) % Basophils % (Manual) (0.2-1.2) Manual Slide Review Platelet Estimate RBC Morph Comment ESR (0-15) mm/hr D-Dimer, Quantitative 3.36 H (0.19-0.50) mg/L Puncture Site Lt radial ABG pH 7.51 H (7.35-7.45) ABG pCO2 32.2 L (35.0-45.0) mmHg ABG pO2 54.0 L (80.0-100.0) mmHg ABG HCO3 25.5 (22.0-26.0) meq/L ABG O2 Saturation 88.6 L (96.0-97.0) % ABG Base Excess 3.4 H (-2-2.0) Shan Test Positive O2 Delivery Device Room air Oxygen Flow Rate 2.0 Sodium (136-145) mEq/L Potassium (3.5-5.1) mEq/L Chloride (98-107) mEq/L Carbon Dioxide (21-32) mEq/L Anion Gap (5-15) BUN (7-18) mg/dL Creatinine (0.7-1.3) mg/dL Est Cr Clr Drug Dosing mL/min Estimated GFR (MDRD) (>60) mL/min BUN/Creatinine Ratio (14-18) Glucose (74-106) mg/dL Calcium (8.5-10.1) mg/dL Magnesium (1.8-2.4) mg/dl Ferritin (26-388) ng/ml Total Bilirubin 0.6 (0.2-1.0) mg/dL Direct Bilirubin 0.20 (0.0-0.2) mg/dl Indirect Bilirubin 0.40 AST 41 H (15-37) U/L ALT 39 (16-63) U/L Alkaline Phosphatase 42 L (46-116) U/L Lactate Dehydrogenase (85-227) U/L Troponin I (0.00-0.056) ng/mL C-Reactive Protein (<1.0) mg/dL NT-Pro-B Natriuret Pep (0-125) pg/mL Total Protein 6.6 (6.4-8.2) g/dl Albumin 2.7 L (3.4-5.0) g/dl Globulin 3.9 gm/dL Albumin/Globulin Ratio 0.7 L (1-2) Vitamin D 25-Hydroxy (30.0-100.0) ng/ml Urine Color (Yellow) Urine Appearance (Clear) Urine pH (5.0-8.0) Ur Specific [place] (1.005-1.030) Urine Protein (Negative) Urine Glucose (UA) (Negative) Urine Ketones (Negative) Urine Occult Blood (Negative) Urine Nitrite (Negative) Urine Bilirubin (Negative) Urine Urobilinogen (0.2-1.0) Ur Leukocyte Esterase (Negative) Urine RBC (0-5) /hpf Urine WBC (0-5) /hpf Ur Squamous Epith Cells (0-5) /hpf Urine Bacteria (FEW) /hpf Urine Mucus (FEW) /hpf 09/30/20 10/01/20 10/01/20 Range/Units 19:10 05:58 05:58 WBC 5.57 (4.23-9.07) K/mm3 RBC 4.40 L (4.63-6.08) M/mm3 Hgb 14.3 (13.7-17.5) gm/dl Hct 43.0 (40.1-51.0) % MCV 97.7 H (79.0-92.2) fl MCH 32.5 H (25.7-32.2) pg MCHC 33.3 (32.2-35.5) g/dl RDW Std Deviation 44.2 H (35.1-43.9) fL Plt Count 321 (163-337) K/mm3 MPV 9.6 (9.4-12.3) fl Neut % (Auto) 83.1 H (34.0-67.9) % Lymph % (Auto) 9.9 L (21.8-53.1) % [place] % (Auto) 6.1 (5.3-12.2) % Eos % (Auto) 0 L (0.8-7.0) Baso % (Auto) 0.4 (0.1-1.2) % Neut # (Auto) 4.63 (1.78-5.38) K/mm3 Lymph # (Auto) 0.55 L (1.32-3.57) K/mm3 [place] # (Auto) 0.34 (0.30-0.82) K/mm3 Eos # (Auto) 0.00 L (0.04-0.54) K/mm3 Baso # (Auto) 0.02 (0.01-0.08) K/mm3 Neutrophils % (Manual) (40-60) % Band Neutrophils % (0-10) % Lymphocytes % (Manual) (20-40) % Atypical Lymphs % % Monocytes % (Manual) (2-10) % Eosinophils % (Manual) (0.8-7.0) % Basophils % (Manual) (0.2-1.2) Manual Slide Review Abnormal smear Platelet Estimate RBC Morph Comment ESR (0-15) mm/hr D-Dimer, Quantitative (0.19-0.50) mg/L Puncture Site ABG pH (7.35-7.45) ABG pCO2 (35.0-45.0) mmHg ABG pO2 (80.0-100.0) mmHg ABG HCO3 (22.0-26.0) meq/L ABG O2 Saturation (96.0-97.0) % ABG Base Excess (-2-2.0) Shan Test O2 Delivery Device Oxygen Flow Rate Sodium (136-145) mEq/L Potassium (3.5-5.1) mEq/L Chloride (98-107) mEq/L Carbon Dioxide (21-32) mEq/L Anion Gap (5-15) BUN (7-18) mg/dL Creatinine (0.7-1.3) mg/dL Est Cr Clr Drug Dosing mL/min Estimated GFR (MDRD) (>60) mL/min BUN/Creatinine Ratio (14-18) Glucose (74-106) mg/dL Calcium (8.5-10.1) mg/dL Magnesium (1.8-2.4) mg/dl Ferritin (26-388) ng/ml Total Bilirubin 0.3 (0.2-1.0) mg/dL Direct Bilirubin < 0.05 (0.0-0.2) mg/dl Indirect Bilirubin TNP AST 27 (15-37) U/L ALT 32 (16-63) U/L Alkaline Phosphatase 37 L (46-116) U/L Lactate Dehydrogenase (85-227) U/L Troponin I (0.00-0.056) ng/mL C-Reactive Protein (<1.0) mg/dL NT-Pro-B Natriuret Pep (0-125) pg/mL Total Protein 7.1 (6.4-8.2) g/dl Albumin 2.3 L (3.4-5.0) g/dl Globulin 4.8 gm/dL Albumin/Globulin Ratio 0.5 L (1-2) Vitamin D 25-Hydroxy (30.0-100.0) ng/ml Urine Color Yellow (Yellow) Urine Appearance Clear (Clear) Urine pH 6.0 (5.0-8.0) Ur Specific [place] 1.010 (1.005-1.030) Urine Protein 1+ H (Negative) Urine Glucose (UA) Negative (Negative) Urine Ketones 1+ H (Negative) Urine Occult Blood Negative (Negative) Urine Nitrite Negative (Negative) Urine Bilirubin 1+ H (Negative) Urine Urobilinogen >=8.0 H (0.2-1.0) Ur Leukocyte Esterase Negative (Negative) Urine RBC 0-5 (0-5) /hpf Urine WBC 0-5 (0-5) /hpf Ur Squamous Epith Cells 0-5 (0-5) /hpf Urine Bacteria Few (FEW) /hpf Urine Mucus Not seen (FEW) /hpf 10/01/20 Range/Units 05:58 WBC (4.23-9.07) K/mm3 RBC (4.63-6.08) M/mm3 Hgb (13.7-17.5) gm/dl Hct (40.1-51.0) % MCV (79.0-92.2) fl MCH (25.7-32.2) pg MCHC (32.2-35.5) g/dl RDW Std Deviation (35.1-43.9) fL Plt Count (163-337) K/mm3 MPV (9.4-12.3) fl Neut % (Auto) (34.0-67.9) % Lymph % (Auto) (21.8-53.1) % [place] % (Auto) (5.3-12.2) % Eos % (Auto) (0.8-7.0) Baso % (Auto) (0.1-1.2) % Neut # (Auto) (1.78-5.38) K/mm3 Lymph # (Auto) (1.32-3.57) K/mm3 [place] # (Auto) (0.30-0.82) K/mm3 Eos # (Auto) (0.04-0.54) K/mm3 Baso # (Auto) (0.01-0.08) K/mm3 Neutrophils % (Manual) (40-60) % Band Neutrophils % (0-10) % Lymphocytes % (Manual) (20-40) % Atypical Lymphs % % Monocytes % (Manual) (2-10) % Eosinophils % (Manual) (0.8-7.0) % Basophils % (Manual) (0.2-1.2) Manual Slide Review Platelet Estimate RBC Morph Comment ESR (0-15) mm/hr D-Dimer, Quantitative (0.19-0.50) mg/L Puncture Site ABG pH (7.35-7.45) ABG pCO2 (35.0-45.0) mmHg ABG pO2 (80.0-100.0) mmHg ABG HCO3 (22.0-26.0) meq/L ABG O2 Saturation (96.0-97.0) % ABG Base Excess (-2-2.0) Shan Test O2 Delivery Device Oxygen Flow Rate Sodium 145 (136-145) mEq/L Potassium 4.5 (3.5-5.1) mEq/L Chloride 107 (98-107) mEq/L Carbon Dioxide 28 (21-32) mEq/L Anion Gap 14.5 (5-15) BUN 22 H (7-18) mg/dL Creatinine 1.0 (0.7-1.3) mg/dL Est Cr Clr Drug Dosing 90.24 mL/min Estimated GFR (MDRD) > 60 (>60) mL/min BUN/Creatinine Ratio 22.0 H (14-18) Glucose 158 H (74-106) mg/dL Calcium 8.9 (8.5-10.1) mg/dL Magnesium 2.5 H (1.8-2.4) mg/dl Ferritin (26-388) ng/ml Total Bilirubin (0.2-1.0) mg/dL Direct Bilirubin (0.0-0.2) mg/dl Indirect Bilirubin AST (15-37) U/L ALT (16-63) U/L Alkaline Phosphatase (46-116) U/L Lactate Dehydrogenase (85-227) U/L Troponin I (0.00-0.056) ng/mL C-Reactive Protein 24.3 H* (<1.0) mg/dL NT-Pro-B Natriuret Pep (0-125) pg/mL Total Protein (6.4-8.2) g/dl Albumin (3.4-5.0) g/dl Globulin gm/dL Albumin/Globulin Ratio (1-2) Vitamin D 25-Hydroxy 11.4 L (30.0-100.0) ng/ml Urine Color (Yellow) Urine Appearance (Clear) Urine pH (5.0-8.0) Ur Specific [place] (1.005-1.030) Urine Protein (Negative) Urine Glucose (UA) (Negative) Urine Ketones (Negative) Urine Occult Blood (Negative) Urine Nitrite (Negative) Urine Bilirubin (Negative) Urine Urobilinogen (0.2-1.0) Ur Leukocyte Esterase (Negative) Urine RBC (0-5) /hpf Urine WBC (0-5) /hpf Ur Squamous Epith Cells (0-5) /hpf Urine Bacteria (FEW) /hpf Urine Mucus (FEW) /hpf Med Orders - Current: Current Medications Acetaminophen (Acetaminophen 325 Mg Tab) 975 mg PO Q6H PRN PRN Reason: Pain (Mild 1-3)/fever Albuterol (Albuterol 0.083% 2.5 Mg/3 Ml Neb Soln) 2.5 mg NEB Q2H PRN PRN Reason: Shortness Of Breath/wheezing Albuterol/Ipratropium (Albuterol/Ipratropium 3.0-0.5 Mg/3 Ml Neb Soln) 3 ml NEB Q4H PRN PRN Reason: Shortness Of Breath/wheezing Cholecalciferol (Cholecalciferol (Vitamin D3) 5,000 Unit Cap) 5,000 unit PO DAILY [facility] Last Admin: 10/01/20 09:41 Dose: 5,000 unit Documented by: Dexamethasone (Dexamethasone 4 Mg Tab) 6 mg PO Q12HR [facility] Stop: 10/05/20 09:01 Last Admin: 10/01/20 11:26 Dose: 6 mg Documented by: Enoxaparin Sodium (Enoxaparin 40 Mg/0.4 Ml Syringe) 80 mg SUBCUT BID [facility] Last Admin: 10/01/20 11:25 Dose: 80 mg Documented by: Famotidine (Famotidine 20 Mg Tab) 20 mg PO BID [facility] Last Admin: 10/01/20 09:43 Dose: 20 mg Documented by: Hydrochlorothiazide (Hydrochlorothiazide 12.5 Mg Cap) 12.5 mg PO DAILY [facility] Last Admin: 10/01/20 09:42 Dose: 12.5 mg Documented by: Remdesivir 100 mg/ Sodium (Chloride) 100 mls @ 100 mls/hr IV Q24H [facility] Stop: 10/04/20 18:59 Ceftriaxone Sodium 2 gm/ (Sodium Chloride) 100 mls @ 200 mls/hr IV Q24H [facility] Stop: 10/04/20 20:14 Last Admin: 09/30/20 20:49 Dose: 200 mls/hr Documented by: Azithromycin 500 mg/ Sodium (Chloride) 250 mls @ 250 mls/hr IV Q24H [facility] Stop: 10/02/20 20:44 Last Admin: 09/30/20 20:49 Dose: 250 mls/hr Documented by: Lisinopril (Lisinopril 10 Mg Tab) 10 mg PO DAILY [facility] Last Admin: 10/01/20 09:41 Dose: 10 mg Documented by: Melatonin (Melatonin 3 Mg Tab) 9 mg PO BEDTIME [facility] Last Admin: 09/30/20 20:49 Dose: 9 mg Documented by: Ondansetron HCl (Ondansetron 4 Mg/2 Ml Sdv) 4 mg IV Q4H PRN PRN Reason: Nausea/Vomiting Sodium Chloride (Sodium Chloride 0.9% 10 Ml Syringe) 10 ml FLUSH ASDIRECTED PRN PRN Reason: Keep Vein Open Last Admin: 09/30/20 16:20 Dose: 10 ml Documented by: Sodium Chloride (Sodium Chloride 0.9% 10 Ml Syringe) 10 ml FLUSH ASDIRECTED [facility] Last Admin: 09/30/20 17:41 Dose: 10 ml Documented by: Zinc Sulfate (Zinc Sulfate 220 Mg Cap) 220 mg PO DAILY [facility] Last Admin: 10/01/20 09:42 Dose: 220 mg Documented by: Discontinued Medications Acetaminophen (Acetaminophen 325 Mg Tab) 975 mg PO ONETIME ONE Stop: 09/30/20 16:05 Last Admin: 09/30/20 16:20 Dose: 975 mg Documented by: Dexamethasone (Dexamethasone 10 Mg/Ml Sdv) 6 mg IVPUSH ONETIME ONE Stop: 09/30/20 18:19 Last Admin: 09/30/20 18:29 Dose: 6 mg Documented by: Dexamethasone (Dexamethasone 4 Mg Tab) 6 mg PO Q24H [facility] Stop: 10/09/20 09:01 Last Admin: 10/01/20 12:04 Dose: Not Given Documented by: Enoxaparin Sodium (Enoxaparin 40 Mg/0.4 Ml Syringe) 40 mg SUBCUT DAILY [facility] Last Admin: 10/01/20 12:04 Dose: Not Given Documented by: Sodium Chloride (Normal Saline) 100 mls @ 60 mls/hr IV ASDIRECTED [facility] Last Admin: 09/30/20 17:40 Dose: 60 mls/hr Documented by: Remdesivir 200 mg/ Sodium (Chloride) 250 mls @ 250 mls/hr IV ONETIME ONE Stop: 09/30/20 18:19 Last Admin: 09/30/20 19:00 Dose: 250 mls/hr Documented by: Tocilizumab 400 mg/Tocilizumab 200 mg/ Sodium Chloride 100 mls @ 100 mls/hr IV ONETIME ONE Stop: 10/01/20 13:59 Last Admin: 10/01/20 12:52 Dose: 100 mls/hr Documented by: Iopamidol (Iopamidol 755 Mg/Ml 100 Ml Bottle) 100 ml IVPUSH ONETIME ONE Stop: 09/30/20 17:02 Last Admin: 09/30/20 17:40 Dose: 100 ml Documented by: - Exam Physical Findings Comments:: General: Alert, Oriented, 4 HEENT: Conjunctiva Clear, Mucosa Moist & [place], Normal Nasal Septum Neck: Supple, Trachea Midline, 2 Lungs: Normal Respiratory Effort, Crackles (Throughout both lung romero) Cardiovascular: Regular Rate, Regular Rhythm GI/Abdominal Exam: Normal Bowel Sounds, Soft, Non-Tender, No Organomegaly, No Distention, No Abnormal Bruit, No Mass Back Exam: Normal Inspection, Full Range of Motion, NT Extremities: Normal Inspection, Normal Range of Motion, Non-Tender, No Pedal Edema, Normal Capillary Refill Peripheral Pulses: 2+: Posterior Tibial (L), Posterior Tibial (R), Dorsalis Pedis (L), Dorsalis Pedis (R) Skin: Warm, Dry, Intact Neuro Extensive - Mental Status: Alert, Oriented x3, Normal Mood/Affect, Normal Cognition, Memory Intact Neuro Extensive - Motor, Sensory, Reflexes: CN II-XII Intact, Normal Gait Psychiatric: Alert, Normal Affect, Normal Mood - Patient Data Lab Results Last 24 hrs: Laboratory Results - last 24 hr 09/30/20 09/30/20 09/30/20 Range/Units 15:45 15:45 15:45 WBC 6.48 (4.23-9.07) K/mm3 RBC 4.81 (4.63-6.08) M/mm3 Hgb 15.3 (13.7-17.5) gm/dl Hct 46.8 (40.1-51.0) % MCV 97.3 H (79.0-92.2) fl MCH 31.8 (25.7-32.2) pg MCHC 32.7 (32.2-35.5) g/dl RDW Std Deviation 45.1 H (35.1-43.9) fL Plt Count 315 (163-337) K/mm3 MPV 9.3 L (9.4-12.3) fl Neut % (Auto) (34.0-67.9) % Lymph % (Auto) (21.8-53.1) % [place] % (Auto) (5.3-12.2) % Eos % (Auto) (0.8-7.0) Baso % (Auto) (0.1-1.2) % Neut # (Auto) (1.78-5.38) K/mm3 Lymph # (Auto) (1.32-3.57) K/mm3 [place] # (Auto) (0.30-0.82) K/mm3 Eos # (Auto) (0.04-0.54) K/mm3 Baso # (Auto) (0.01-0.08) K/mm3 Neutrophils % (Manual) 82 H (40-60) % Band Neutrophils % 0 (0-10) % Lymphocytes % (Manual) 16 L (20-40) % Atypical Lymphs % 0 % Monocytes % (Manual) 2 (2-10) % Eosinophils % (Manual) 0 L (0.8-7.0) % Basophils % (Manual) 0 L (0.2-1.2) Manual Slide Review Platelet Estimate Adequate RBC Morph Comment Normal ESR 70 H (0-15) mm/hr D-Dimer, Quantitative (0.19-0.50) mg/L Puncture Site ABG pH (7.35-7.45) ABG pCO2 (35.0-45.0) mmHg ABG pO2 (80.0-100.0) mmHg ABG HCO3 (22.0-26.0) meq/L ABG O2 Saturation (96.0-97.0) % ABG Base Excess (-2-2.0) Shan Test O2 Delivery Device Oxygen Flow Rate Sodium 144 (136-145) mEq/L Potassium 3.6 (3.5-5.1) mEq/L Chloride 101 (98-107) mEq/L Carbon Dioxide 30 (21-32) mEq/L Anion Gap 16.6 H (5-15) BUN 20 H (7-18) mg/dL Creatinine 1.4 H (0.7-1.3) mg/dL Est Cr Clr Drug Dosing 62.42 mL/min Estimated GFR (MDRD) 53 (>60) mL/min BUN/Creatinine Ratio 14.3 (14-18) Glucose 95 (74-106) mg/dL Calcium 9.0 (8.5-10.1) mg/dL Magnesium 2.2 (1.8-2.4) mg/dl Ferritin (26-388) ng/ml Total Bilirubin 0.7 (0.2-1.0) mg/dL Direct Bilirubin (0.0-0.2) mg/dl Indirect Bilirubin AST 41 H (15-37) U/L ALT 39 (16-63) U/L Alkaline Phosphatase 39 L (46-116) U/L Lactate Dehydrogenase (85-227) U/L Troponin I < 0.017 (0.00-0.056) ng/mL C-Reactive Protein 26.3 H* (<1.0) mg/dL NT-Pro-B Natriuret Pep (0-125) pg/mL Total Protein 7.6 (6.4-8.2) g/dl Albumin 2.6 L (3.4-5.0) g/dl Globulin 5.0 gm/dL Albumin/Globulin Ratio 0.5 L (1-2) Vitamin D 25-Hydroxy (30.0-100.0) ng/ml Urine Color (Yellow) Urine Appearance (Clear) Urine pH (5.0-8.0) Ur Specific [place] (1.005-1.030) Urine Protein (Negative) Urine Glucose (UA) (Negative) Urine Ketones (Negative) Urine Occult Blood (Negative) Urine Nitrite (Negative) Urine Bilirubin (Negative) Urine Urobilinogen (0.2-1.0) Ur Leukocyte Esterase (Negative) Urine RBC (0-5) /hpf Urine WBC (0-5) /hpf Ur Squamous Epith Cells (0-5) /hpf Urine Bacteria (FEW) /hpf Urine Mucus (FEW) /hpf 09/30/20 09/30/20 09/30/20 Range/Units 15:45 15:45 15:45 WBC (4.23-9.07) K/mm3 RBC (4.63-6.08) M/mm3 Hgb (13.7-17.5) gm/dl Hct (40.1-51.0) % MCV (79.0-92.2) fl MCH (25.7-32.2) pg MCHC (32.2-35.5) g/dl RDW Std Deviation (35.1-43.9) fL Plt Count (163-337) K/mm3 MPV (9.4-12.3) fl Neut % (Auto) (34.0-67.9) % Lymph % (Auto) (21.8-53.1) % [place] % (Auto) (5.3-12.2) % Eos % (Auto) (0.8-7.0) Baso % (Auto) (0.1-1.2) % Neut # (Auto) (1.78-5.38) K/mm3 Lymph # (Auto) (1.32-3.57) K/mm3 [place] # (Auto) (0.30-0.82) K/mm3 Eos # (Auto) (0.04-0.54) K/mm3 Baso # (Auto) (0.01-0.08) K/mm3 Neutrophils % (Manual) (40-60) % Band Neutrophils % (0-10) % Lymphocytes % (Manual) (20-40) % Atypical Lymphs % % Monocytes % (Manual) (2-10) % Eosinophils % (Manual) (0.8-7.0) % Basophils % (Manual) (0.2-1.2) Manual Slide Review Platelet Estimate RBC Morph Comment ESR (0-15) mm/hr D-Dimer, Quantitative (0.19-0.50) mg/L Puncture Site ABG pH (7.35-7.45) ABG pCO2 (35.0-45.0) mmHg ABG pO2 (80.0-100.0) mmHg ABG HCO3 (22.0-26.0) meq/L ABG O2 Saturation (96.0-97.0) % ABG Base Excess (-2-2.0) Shan Test O2 Delivery Device Oxygen Flow Rate Sodium (136-145) mEq/L Potassium (3.5-5.1) mEq/L Chloride (98-107) mEq/L Carbon Dioxide (21-32) mEq/L Anion Gap (5-15) BUN (7-18) mg/dL Creatinine (0.7-1.3) mg/dL Est Cr Clr Drug Dosing mL/min Estimated GFR (MDRD) (>60) mL/min BUN/Creatinine Ratio (14-18) Glucose (74-106) mg/dL Calcium (8.5-10.1) mg/dL Magnesium (1.8-2.4) mg/dl Ferritin 1221 H (26-388) ng/ml Total Bilirubin (0.2-1.0) mg/dL Direct Bilirubin (0.0-0.2) mg/dl Indirect Bilirubin AST (15-37) U/L ALT (16-63) U/L Alkaline Phosphatase (46-116) U/L Lactate Dehydrogenase 386 H (85-227) U/L Troponin I (0.00-0.056) ng/mL C-Reactive Protein (<1.0) mg/dL NT-Pro-B Natriuret Pep 82 (0-125) pg/mL Total Protein (6.4-8.2) g/dl Albumin (3.4-5.0) g/dl Globulin gm/dL Albumin/Globulin Ratio (1-2) Vitamin D 25-Hydroxy (30.0-100.0) ng/ml Urine Color (Yellow) Urine Appearance (Clear) Urine pH (5.0-8.0) Ur Specific [place] (1.005-1.030) Urine Protein (Negative) Urine Glucose (UA) (Negative) Urine Ketones (Negative) Urine Occult Blood (Negative) Urine Nitrite (Negative) Urine Bilirubin (Negative) Urine Urobilinogen (0.2-1.0) Ur Leukocyte Esterase (Negative) Urine RBC (0-5) /hpf Urine WBC (0-5) /hpf Ur Squamous Epith Cells (0-5) /hpf Urine Bacteria (FEW) /hpf Urine Mucus (FEW) /hpf 09/30/20 09/30/20 09/30/20 Range/Units 15:45 15:45 16:23 WBC (4.23-9.07) K/mm3 RBC (4.63-6.08) M/mm3 Hgb (13.7-17.5) gm/dl Hct (40.1-51.0) % MCV (79.0-92.2) fl MCH (25.7-32.2) pg MCHC (32.2-35.5) g/dl RDW Std Deviation (35.1-43.9) fL Plt Count (163-337) K/mm3 MPV (9.4-12.3) fl Neut % (Auto) (34.0-67.9) % Lymph % (Auto) (21.8-53.1) % [place] % (Auto) (5.3-12.2) % Eos % (Auto) (0.8-7.0) Baso % (Auto) (0.1-1.2) % Neut # (Auto) (1.78-5.38) K/mm3 Lymph # (Auto) (1.32-3.57) K/mm3 [place] # (Auto) (0.30-0.82) K/mm3 Eos # (Auto) (0.04-0.54) K/mm3 Baso # (Auto) (0.01-0.08) K/mm3 Neutrophils % (Manual) (40-60) % Band Neutrophils % (0-10) % Lymphocytes % (Manual) (20-40) % Atypical Lymphs % % Monocytes % (Manual) (2-10) % Eosinophils % (Manual) (0.8-7.0) % Basophils % (Manual) (0.2-1.2) Manual Slide Review Platelet Estimate RBC Morph Comment ESR (0-15) mm/hr D-Dimer, Quantitative 3.36 H (0.19-0.50) mg/L Puncture Site Lt radial ABG pH 7.51 H (7.35-7.45) ABG pCO2 32.2 L (35.0-45.0) mmHg ABG pO2 54.0 L (80.0-100.0) mmHg ABG HCO3 25.5 (22.0-26.0) meq/L ABG O2 Saturation 88.6 L (96.0-97.0) % ABG Base Excess 3.4 H (-2-2.0) Shan Test Positive O2 Delivery Device Room air Oxygen Flow Rate 2.0 Sodium (136-145) mEq/L Potassium (3.5-5.1) mEq/L Chloride (98-107) mEq/L Carbon Dioxide (21-32) mEq/L Anion Gap (5-15) BUN (7-18) mg/dL Creatinine (0.7-1.3) mg/dL Est Cr Clr Drug Dosing mL/min Estimated GFR (MDRD) (>60) mL/min BUN/Creatinine Ratio (14-18) Glucose (74-106) mg/dL Calcium (8.5-10.1) mg/dL Magnesium (1.8-2.4) mg/dl Ferritin (26-388) ng/ml Total Bilirubin 0.6 (0.2-1.0) mg/dL Direct Bilirubin 0.20 (0.0-0.2) mg/dl Indirect Bilirubin 0.40 AST 41 H (15-37) U/L ALT 39 (16-63) U/L Alkaline Phosphatase 42 L (46-116) U/L Lactate Dehydrogenase (85-227) U/L Troponin I (0.00-0.056) ng/mL C-Reactive Protein (<1.0) mg/dL NT-Pro-B Natriuret Pep (0-125) pg/mL Total Protein 6.6 (6.4-8.2) g/dl Albumin 2.7 L (3.4-5.0) g/dl Globulin 3.9 gm/dL Albumin/Globulin Ratio 0.7 L (1-2) Vitamin D 25-Hydroxy (30.0-100.0) ng/ml Urine Color (Yellow) Urine Appearance (Clear) Urine pH (5.0-8.0) Ur Specific [place] (1.005-1.030) Urine Protein (Negative) Urine Glucose (UA) (Negative) Urine Ketones (Negative) Urine Occult Blood (Negative) Urine Nitrite (Negative) Urine Bilirubin (Negative) Urine Urobilinogen (0.2-1.0) Ur Leukocyte Esterase (Negative) Urine RBC (0-5) /hpf Urine WBC (0-5) /hpf Ur Squamous Epith Cells (0-5) /hpf Urine Bacteria (FEW) /hpf Urine Mucus (FEW) /hpf 09/30/20 10/01/20 10/01/20 Range/Units 19:10 05:58 05:58 WBC 5.57 (4.23-9.07) K/mm3 RBC 4.40 L (4.63-6.08) M/mm3 Hgb 14.3 (13.7-17.5) gm/dl Hct 43.0 (40.1-51.0) % MCV 97.7 H (79.0-92.2) fl MCH 32.5 H (25.7-32.2) pg MCHC 33.3 (32.2-35.5) g/dl RDW Std Deviation 44.2 H (35.1-43.9) fL Plt Count 321 (163-337) K/mm3 MPV 9.6 (9.4-12.3) fl Neut % (Auto) 83.1 H (34.0-67.9) % Lymph % (Auto) 9.9 L (21.8-53.1) % [place] % (Auto) 6.1 (5.3-12.2) % Eos % (Auto) 0 L (0.8-7.0) Baso % (Auto) 0.4 (0.1-1.2) % Neut # (Auto) 4.63 (1.78-5.38) K/mm3 Lymph # (Auto) 0.55 L (1.32-3.57) K/mm3 [place] # (Auto) 0.34 (0.30-0.82) K/mm3 Eos # (Auto) 0.00 L (0.04-0.54) K/mm3 Baso # (Auto) 0.02 (0.01-0.08) K/mm3 Neutrophils % (Manual) (40-60) % Band Neutrophils % (0-10) % Lymphocytes % (Manual) (20-40) % Atypical Lymphs % % Monocytes % (Manual) (2-10) % Eosinophils % (Manual) (0.8-7.0) % Basophils % (Manual) (0.2-1.2) Manual Slide Review Abnormal smear Platelet Estimate RBC Morph Comment ESR (0-15) mm/hr D-Dimer, Quantitative (0.19-0.50) mg/L Puncture Site ABG pH (7.35-7.45) ABG pCO2 (35.0-45.0) mmHg ABG pO2 (80.0-100.0) mmHg ABG HCO3 (22.0-26.0) meq/L ABG O2 Saturation (96.0-97.0) % ABG Base Excess (-2-2.0) Shan Test O2 Delivery Device Oxygen Flow Rate Sodium (136-145) mEq/L Potassium (3.5-5.1) mEq/L Chloride (98-107) mEq/L Carbon Dioxide (21-32) mEq/L Anion Gap (5-15) BUN (7-18) mg/dL Creatinine (0.7-1.3) mg/dL Est Cr Clr Drug Dosing mL/min Estimated GFR (MDRD) (>60) mL/min BUN/Creatinine Ratio (14-18) Glucose (74-106) mg/dL Calcium (8.5-10.1) mg/dL Magnesium (1.8-2.4) mg/dl Ferritin (26-388) ng/ml Total Bilirubin 0.3 (0.2-1.0) mg/dL Direct Bilirubin < 0.05 (0.0-0.2) mg/dl Indirect Bilirubin TNP AST 27 (15-37) U/L ALT 32 (16-63) U/L Alkaline Phosphatase 37 L (46-116) U/L Lactate Dehydrogenase (85-227) U/L Troponin I (0.00-0.056) ng/mL C-Reactive Protein (<1.0) mg/dL NT-Pro-B Natriuret Pep (0-125) pg/mL Total Protein 7.1 (6.4-8.2) g/dl Albumin 2.3 L (3.4-5.0) g/dl Globulin 4.8 gm/dL Albumin/Globulin Ratio 0.5 L (1-2) Vitamin D 25-Hydroxy (30.0-100.0) ng/ml Urine Color Yellow (Yellow) Urine Appearance Clear (Clear) Urine pH 6.0 (5.0-8.0) Ur Specific [place] 1.010 (1.005-1.030) Urine Protein 1+ H (Negative) Urine Glucose (UA) Negative (Negative) Urine Ketones 1+ H (Negative) Urine Occult Blood Negative (Negative) Urine Nitrite Negative (Negative) Urine Bilirubin 1+ H (Negative) Urine Urobilinogen >=8.0 H (0.2-1.0) Ur Leukocyte Esterase Negative (Negative) Urine RBC 0-5 (0-5) /hpf Urine WBC 0-5 (0-5) /hpf Ur Squamous Epith Cells 0-5 (0-5) /hpf Urine Bacteria Few (FEW) /hpf Urine Mucus Not seen (FEW) /hpf 10/01/ Range/Units 05:58 WBC (4.23-9.07) K/mm3 RBC (4.63-6.08) M/mm3 Hgb (13.7-17.5) gm/dl Hct (40.1-51.0) % MCV (79.0-92.2) fl MCH (25.7-32.2) pg MCHC (32.2-35.5) g/dl RDW Std Deviation (35.1-43.9) fL Plt Count (163-337) K/mm3 MPV (9.4-12.3) fl Neut % (Auto) (34.0-67.9) % Lymph % (Auto) (21.8-53.1) % [place] % (Auto) (5.3-12.2) % Eos % (Auto) (0.8-7.0) Baso % (Auto) (0.1-1.2) % Neut # (Auto) (1.78-5.38) K/mm3 Lymph # (Auto) (1.32-3.57) K/mm3 [place] # (Auto) (0.30-0.82) K/mm3 Eos # (Auto) (0.04-0.54) K/mm3 Baso # (Auto) (0.01-0.08) K/mm3 Neutrophils % (Manual) (40-60) % Band Neutrophils % (0-10) % Lymphocytes % (Manual) (20-40) % Atypical Lymphs % % Monocytes % (Manual) (2-10) % Eosinophils % (Manual) (0.8-7.0) % Basophils % (Manual) (0.2-1.2) Manual Slide Review Platelet Estimate RBC Morph Comment ESR (0-15) mm/hr D-Dimer, Quantitative (0.19-0.50) mg/L Puncture Site ABG pH (7.35-7.45) ABG pCO2 (35.0-45.0) mmHg ABG pO2 (80.0-100.0) mmHg ABG HCO3 (22.0-26.0) meq/L ABG O2 Saturation (96.0-97.0) % ABG Base Excess (-2-2.0) Shan Test O2 Delivery Device Oxygen Flow Rate Sodium 145 (136-145) mEq/L Potassium 4.5 (3.5-5.1) mEq/L Chloride 107 (98-107) mEq/L Carbon Dioxide 28 (21-32) mEq/L Anion Gap 14.5 (5-15) BUN 22 H (7-18) mg/dL Creatinine 1.0 (0.7-1.3) mg/dL Est Cr Clr Drug Dosing 90.24 mL/min Estimated GFR (MDRD) > 60 (>60) mL/min BUN/Creatinine Ratio 22.0 H (14-18) Glucose 158 H (74-106) mg/dL Calcium 8.9 (8.5-10.1) mg/dL Magnesium 2.5 H (1.8-2.4) mg/dl Ferritin (26-388) ng/ml Total Bilirubin (0.2-1.0) mg/dL Direct Bilirubin (0.0-0.2) mg/dl Indirect Bilirubin AST (15-37) U/L ALT (16-63) U/L Alkaline Phosphatase (46-116) U/L Lactate Dehydrogenase (85-227) U/L Troponin I (0.00-0.056) ng/mL C-Reactive Protein 24.3 H* (<1.0) mg/dL NT-Pro-B Natriuret Pep (0-125) pg/mL Total Protein (6.4-8.2) g/dl Albumin (3.4-5.0) g/dl Globulin gm/dL Albumin/Globulin Ratio (1-2) Vitamin D 25-Hydroxy 11.4 L (30.0-100.0) ng/ml Urine Color (Yellow) Urine Appearance (Clear) Urine pH (5.0-8.0) Ur Specific [place] (1.005-1.030) Urine Protein (Negative) Urine Glucose (UA) (Negative) Urine Ketones (Negative) Urine Occult Blood (Negative) Urine Nitrite (Negative) Urine Bilirubin (Negative) Urine Urobilinogen (0.2-1.0) Ur Leukocyte Esterase (Negative) Urine RBC (0-5) /hpf Urine WBC (0-5) /hpf Ur Squamous Epith Cells (0-5) /hpf Urine Bacteria (FEW) /hpf Urine Mucus (FEW) /hpf Result Diagrams: 10/01/20 05:58 10/01/20 05:58 Sepsis Event Note - Evaluation Sepsis Screening Result: No Definite Risk - Focused Exam Vital Signs: Vital Signs Temp Pulse Resp BP Pulse Ox 10/01/20 15:26 36.5 C 83 16 119/75 95 10/01/20 11:29 36.4 C 71 14 129/80 94 L 10/01/20 09:41 123/77 10/01/20 08:16 36.4 C 65 16 123/77 94 L 10/01/20 05:15 36.4 C 64 13 115/83 95 - Problem List Review Problem List Initiated/Reviewed/Updated: Yes - My Orders Last 24 Hours: My Active Orders 10/01/20 09:30 Enoxaparin [Lovenox] 80 mg SUBCUT BID dexAMETHasone 6 mg PO Q12HR 10/01/20 11:42 Pulse Oximetry Continuous Monitoring [OM.PC] Routine - Plan Plan:: Assessment 49-year-old male with 14-day history of COVID-19 symptoms diagnosed 5 days ago and released by [facility] presents to the emergency department with hypoxemia and severe nonproductive cough. Patient's risk factors include hypertension. Covid infection Viral pneumonia Hypoxemia * 14-day history of symptoms * 5 days post positive test * Started on remdesivir on October 01 * Started dexamethasone on October 01, increased to 6 mg p.o. twice daily today * Started Lovenox 80 mg twice daily today * Started ceftriaxone 2 g daily and a azithromycin 500 mg daily on September 30 * Currently on 3 L nasal cannula to keep SPO2 in the low 90s * Inhalers Hypertension Abnormal renal function * On lisinopril and hydrochlorothiazide at home * Creatinine trending down to normal Plan * Remdesivir, dexamethasone * Actemra 600 mg IV x1 * Rocephin 2 g daily x5 days, Zithromax 500 mg IV daily x3 * Pepcid, melatonin, zinc, vitamin D * As needed albuterol and DuoNeb * FiO2 to keep SPO2 greater than 87% * Follow CBC, CMP, mag, C-reactive protein, and D-dimer * VTE prophylaxis with Lovenox 40 mg subcu daily * CODE STATUS full code
[2020-10-01] MEDS: REMDESIVIR 100 MG in Sodium Chloride 0.9% 100 ML IV SCH (17:17)
[2020-10-01] MEDS: cefTRIAXone 2 GM in Sodium Chloride 0.9% 100 ML IV SCH (18:47)
[2020-10-01] MEDS: Azithromycin 500 MG in Sodium Chloride 0.9% 250 ML IV SCH (21:14)
[2020-10-01] MEDS: Melatonin 3 MG Tab PO SCH (21:22)
[2020-10-02] MEDS: Famotidine 20 MG Tab PO SCH ×2 (08:19→20:50)
[2020-10-02] MEDS: Cholecalciferol (Vitamin D3) 5,000 UNIT Cap PO SCH (08:19)
[2020-10-02] MEDS: Hydrochlorothiazide 12.5 MG Cap PO SCH (08:20)
[2020-10-02] MEDS: Lisinopril 10 MG Tab PO SCH (08:20)
[2020-10-02] MEDS: Zinc Sulfate 220 MG Cap PO SCH (08:20)
[2020-10-02] MEDS: Dexamethasone 4 MG Tab PO SCH ×2 (08:20→20:48)
[2020-10-02] MEDS: Enoxaparin 80 MG/0.8 ML Syringe SUBCUT SCH ×2 (08:21→20:50)
[2020-10-02] MEDS ORDERED: hydrALAZINE 10 MG Tab PO PRN (08:55)
[2020-10-02] MEDS ORDERED: Lactated Ringers 1,000 ML IV SCH (09:00)
--- NOTE | 2020-10-02 14:59 | PCM.PN ---
- General Info Date of Service: 10/02/20 Admission Dx/Problem (Free Text): Admission Diagnosis/Problem Admission Diagnosis/Problem Hypoxia Subjective Update: 49-year-old male with history of hypertension presents to the emergency department with worsening nonproductive cough. Patient states that he started getting mild cough and sore throat on September 16. Last Saturday, September 24 he was seen at the walk-in clinic and chest x-ray was performed which was negative. R apid Covid testing was performed also which was negative. Apparently patient was called the next day secondary to radiology things some concerning findings and a repeat test on Saturday was positive for COVID-19. Patient does not have any new complaints. Denies nausea, vomiting, diarrhea, fever, or chills. He is now on 1L to RM CRP went down to 13.4 from 24.3 yesterday Sodium 146 - Review of Systems Systems Review Comment:: General: Reports: Fatigue, Malaise HEENT: Reports: No Symptoms Pulmonary: Reports: Shortness of Breath Cardiovascular: Reports: No Symptoms Gastrointestinal: Reports: No Symptoms Genitourinary: Reports: No Symptoms Musculoskeletal: Reports: No Symptoms Skin: Reports: No Symptoms Neurological: Reports: No Symptoms Psychiatric: Reports: No Symptoms - Patient Data Vitals - Most Recent: Last Vital Signs Temp 36.4 C 10/02/20 12:05 Pulse 78 10/02/20 12:05 Resp 14 10/02/20 12:05 BP 136/78 10/02/20 12:05 Pulse Ox 93 L 10/02/20 12:05 Weight - Most Recent: 83.506 kg I&O - Last 24 Hours: Intake & Output 10/01/20 10/02/20 10/02/20 22:59 06:59 14:59 Intake Total 1160 1200 Output Total 300 975 Balance 860 225 Lab Results Last 24 Hours: Laboratory Results - last 24 hr 10/02/20 10/02/20 10/02/20 Range/Units 05:20 05:20 05:20 WBC 11.04 H (4.23-9.07) K/mm3 RBC 4.44 L (4.63-6.08) M/mm3 Hgb 14.4 (13.7-17.5) gm/dl Hct 42.9 (40.1-51.0) % MCV 96.6 H (79.0-92.2) fl MCH 32.4 H (25.7-32.2) pg MCHC 33.6 (32.2-35.5) g/dl RDW Std Deviation 43.2 (35.1-43.9) fL Plt Count 357 H (163-337) K/mm3 MPV 9.8 (9.4-12.3) fl Neut % (Auto) 87.4 H (34.0-67.9) % Lymph % (Auto) 6.8 L (21.8-53.1) % [place] % (Auto) 5.2 L (5.3-12.2) % Eos % (Auto) 0 L (0.8-7.0) Baso % (Auto) 0.1 (0.1-1.2) % Neut # (Auto) 9.66 H (1.78-5.38) K/mm3 Lymph # (Auto) 0.75 L (1.32-3.57) K/mm3 [place] # (Auto) 0.57 (0.30-0.82) K/mm3 Eos # (Auto) 0.00 L (0.04-0.54) K/mm3 Baso # (Auto) 0.01 (0.01-0.08) K/mm3 Manual Slide Review Abnormal smear Sodium 146 H (136-145) mEq/L Potassium 4.0 (3.5-5.1) mEq/L Chloride 109 H (98-107) mEq/L Carbon Dioxide 26 (21-32) mEq/L Anion Gap 15.0 (5-15) BUN 25 H (7-18) mg/dL Creatinine 1.0 (0.7-1.3) mg/dL Est Cr Clr Drug Dosing 90.24 mL/min Estimated GFR (MDRD) > 60 (>60) mL/min BUN/Creatinine Ratio 25.0 H (14-18) Glucose 150 H (74-106) mg/dL Calcium 9.0 (8.5-10.1) mg/dL Total Bilirubin 0.2 0.2 (0.2-1.0) mg/dL Direct Bilirubin 0.10 (0.0-0.2) mg/dl Indirect Bilirubin 0.10 AST 25 22 (15-37) U/L ALT 34 32 (16-63) U/L Alkaline Phosphatase 38 L 38 L (46-116) U/L C-Reactive Protein 13.4 H* (<1.0) mg/dL Total Protein 6.8 6.8 (6.4-8.2) g/dl Albumin 2.3 L 2.2 L (3.4-5.0) g/dl Globulin 4.5 4.6 gm/dL Albumin/Globulin Ratio 0.5 L 0.5 L (1-2) Albert Results Last 24 Hours: Microbiology 09/30/20 16:40 Aerobic Blood Culture - Preliminary Blood - Venous - Lab Draw NO GROWTH AFTER 1 DAY Anaerobic Blood Culture - Preliminary NO GROWTH AFTER 1 DAY 09/30/20 16:27 Aerobic Blood Culture - Preliminary Blood - Venous NO GROWTH AFTER 1 DAY Anaerobic Blood Culture - Preliminary NO GROWTH AFTER 1 DAY Med Orders - Current: Current Medications Acetaminophen (Acetaminophen 325 Mg Tab) 975 mg PO Q6H PRN PRN Reason: Pain (Mild 1-3)/fever Albuterol (Albuterol 0.083% 2.5 Mg/3 Ml Neb Soln) 2.5 mg NEB Q2H PRN PRN Reason: Shortness Of Breath/wheezing Albuterol/Ipratropium (Albuterol/Ipratropium 3.0-0.5 Mg/3 Ml Neb Soln) 3 ml NEB Q4H PRN PRN Reason: Shortness Of Breath/wheezing Cholecalciferol (Cholecalciferol (Vitamin D3) 5,000 Unit Cap) 5,000 unit PO DAILY [facility] Last Admin: 10/02/20 08:19 Dose: 5,000 unit Documented by: Dexamethasone (Dexamethasone 4 Mg Tab) 6 mg PO Q12HR [facility] Stop: 10/05/20 09:01 Last Admin: 10/02/20 08:20 Dose: 6 mg Documented by: Enoxaparin Sodium (Enoxaparin 80 Mg/0.8 Ml Syringe) 80 mg SUBCUT BID [facility] Last Admin: 10/02/20 08:21 Dose: 80 mg Documented by: Famotidine (Famotidine 20 Mg Tab) 20 mg PO BID [facility] Last Admin: 10/02/20 08:19 Dose: 20 mg Documented by: Hydralazine HCl (Hydralazine 10 Mg Tab) 10 mg PO Q4H PRN PRN Reason: Hypertension Hydrochlorothiazide (Hydrochlorothiazide 12.5 Mg Cap) 12.5 mg PO DAILY [facility] Last Admin: 10/02/20 08:20 Dose: 12.5 mg Documented by: Remdesivir 100 mg/ Sodium (Chloride) 100 mls @ 100 mls/hr IV Q24H [facility] Stop: 10/04/20 18:59 Last Admin: 10/01/20 17:17 Dose: 100 mls/hr Documented by: Ceftriaxone Sodium 2 gm/ (Sodium Chloride) 100 mls @ 200 mls/hr IV Q24H [facility] Stop: 10/04/20 20:14 Last Admin: 10/01/20 18:47 Dose: 200 mls/hr Documented by: Azithromycin 500 mg/ Sodium (Chloride) 250 mls @ 250 mls/hr IV Q24H [facility] Stop: 10/02/20 20:44 Last Admin: 10/01/20 21:14 Dose: 250 mls/hr Documented by: Lactated Ringer's (Ringers, Lactated) 1,000 mls @ 50 mls/hr IV ASDIRECTED [facility] Last Admin: 10/02/20 11:15 Dose: 50 mls/hr Documented by: Lisinopril (Lisinopril 10 Mg Tab) 10 mg PO DAILY [facility] Last Admin: 10/02/20 08:20 Dose: 10 mg Documented by: Melatonin (Melatonin 3 Mg Tab) 9 mg PO BEDTIME [facility] Last Admin: 10/01/20 21:22 Dose: 9 mg Documented by: Ondansetron HCl (Ondansetron 4 Mg/2 Ml Sdv) 4 mg IV Q4H PRN PRN Reason: Nausea/Vomiting Sodium Chloride (Sodium Chloride 0.9% 10 Ml Syringe) 10 ml FLUSH ASDIRECTED PRN PRN Reason: Keep Vein Open Last Admin: 09/30/20 16:20 Dose: 10 ml Documented by: Sodium Chloride (Sodium Chloride 0.9% 10 Ml Syringe) 10 ml FLUSH ASDIRECTED [facility] Last Admin: 09/30/20 17:41 Dose: 10 ml Documented by: Zinc Sulfate (Zinc Sulfate 220 Mg Cap) 220 mg PO DAILY [facility] Last Admin: 10/02/20 08:20 Dose: 220 mg Documented by: Discontinued Medications Acetaminophen (Acetaminophen 325 Mg Tab) 975 mg PO ONETIME ONE Stop: 09/30/20 16:05 Last Admin: 09/30/20 16:20 Dose: 975 mg Documented by: Dexamethasone (Dexamethasone 10 Mg/Ml Sdv) 6 mg IVPUSH ONETIME ONE Stop: 09/30/20 18:19 Last Admin: 09/30/20 18:29 Dose: 6 mg Documented by: Dexamethasone (Dexamethasone 4 Mg Tab) 6 mg PO Q24H [facility] Stop: 10/09/20 09:01 Last Admin: 10/01/20 12:04 Dose: Not Given Documented by: Enoxaparin Sodium (Enoxaparin 40 Mg/0.4 Ml Syringe) 40 mg SUBCUT DAILY [facility] Last Admin: 10/01/20 12:04 Dose: Not Given Documented by: Enoxaparin Sodium (Enoxaparin 40 Mg/0.4 Ml Syringe) 80 mg SUBCUT BID [facility] Last Admin: 10/01/20 21:23 Dose: 80 mg Documented by: Sodium Chloride (Normal Saline) 100 mls @ 60 mls/hr IV ASDIRECTED [facility] Last Admin: 09/30/20 17:40 Dose: 60 mls/hr Documented by: Remdesivir 200 mg/ Sodium (Chloride) 250 mls @ 250 mls/hr IV ONETIME ONE Stop: 09/30/20 18:19 Last Admin: 09/30/20 19:00 Dose: 250 mls/hr Documented by: Tocilizumab 400 mg/Tocilizumab 200 mg/ Sodium Chloride 100 mls @ 100 mls/hr IV ONETIME ONE Stop: 10/01/20 13:59 Last Admin: 10/01/20 12:52 Dose: 100 mls/hr Documented by: Iopamidol (Iopamidol 755 Mg/Ml 100 Ml Bottle) 100 ml IVPUSH ONETIME ONE Stop: 09/30/20 17:02 Last Admin: 09/30/20 17:40 Dose: 100 ml Documented by: - Exam Physical Findings Comments:: General: Alert, Oriented, 4 HEENT: Conjunctiva Clear, Mucosa Moist & [place], Normal Nasal Septum Neck: Supple, Trachea Midline, 2 Lungs: Normal Respiratory Effort, Crackles (Throughout both lung romero)(improving) Cardiovascular: Regular Rate, Regular Rhythm GI/Abdominal Exam: Normal Bowel Sounds, Soft, Non-Tender, No Organomegaly, No Distention, No Abnormal Bruit, No Mass Back Exam: Normal Inspection, Full Range of Motion, NT Extremities: Normal Inspection, Normal Range of Motion, Non-Tender, No Pedal Edema, Normal Capillary Refill Peripheral Pulses: 2+: Posterior Tibial (L), Posterior Tibial (R), Dorsalis Pedis (L), Dorsalis Pedis (R) Skin: Warm, Dry, Intact Neuro Extensive - Mental Status: Alert, Oriented x3, Normal Mood/Affect, Normal Cognition, Memory Intact Neuro Extensive - Motor, Sensory, Reflexes: CN II-XII Intact, Normal Gait Psychiatric: Alert, Normal Affect, Normal Mood - Patient Data Lab Results Last 24 hrs: Laboratory Results - last 24 hr 10/02/20 10/02/20 10/02/20 Range/Units 05:20 05:20 05:20 WBC 11.04 H (4.23-9.07) K/mm3 RBC 4.44 L (4.63-6.08) M/mm3 Hgb 14.4 (13.7-17.5) gm/dl Hct 42.9 (40.1-51.0) % MCV 96.6 H (79.0-92.2) fl MCH 32.4 H (25.7-32.2) pg MCHC 33.6 (32.2-35.5) g/dl RDW Std Deviation 43.2 (35.1-43.9) fL Plt Count 357 H (163-337) K/mm3 MPV 9.8 (9.4-12.3) fl Neut % (Auto) 87.4 H (34.0-67.9) % Lymph % (Auto) 6.8 L (21.8-53.1) % [place] % (Auto) 5.2 L (5.3-12.2) % Eos % (Auto) 0 L (0.8-7.0) Baso % (Auto) 0.1 (0.1-1.2) % Neut # (Auto) 9.66 H (1.78-5.38) K/mm3 Lymph # (Auto) 0.75 L (1.32-3.57) K/mm3 [place] # (Auto) 0.57 (0.30-0.82) K/mm3 Eos # (Auto) 0.00 L (0.04-0.54) K/mm3 Baso # (Auto) 0.01 (0.01-0.08) K/mm3 Manual Slide Review Abnormal smear Sodium 146 H (136-145) mEq/L Potassium 4.0 (3.5-5.1) mEq/L Chloride 109 H (98-107) mEq/L Carbon Dioxide 26 (21-32) mEq/L Anion Gap 15.0 (5-15) BUN 25 H (7-18) mg/dL Creatinine 1.0 (0.7-1.3) mg/dL Est Cr Clr Drug Dosing 90.24 mL/min Estimated GFR (MDRD) > 60 (>60) mL/min BUN/Creatinine Ratio 25.0 H (14-18) Glucose 150 H (74-106) mg/dL Calcium 9.0 (8.5-10.1) mg/dL Total Bilirubin 0.2 0.2 (0.2-1.0) mg/dL Direct Bilirubin 0.10 (0.0-0.2) mg/dl Indirect Bilirubin 0.10 AST 25 22 (15-37) U/L ALT 34 32 (16-63) U/L Alkaline Phosphatase 38 L 38 L (46-116) U/L C-Reactive Protein 13.4 H* (<1.0) mg/dL Total Protein 6.8 6.8 (6.4-8.2) g/dl Albumin 2.3 L 2.2 L (3.4-5.0) g/dl Globulin 4.5 4.6 gm/dL Albumin/Globulin Ratio 0.5 L 0.5 L (1-2) Result Diagrams: 10/02/20 05:20 10/02/20 05:20 Albert Results Last 24 hrs: Microbiology 09/30/20 16:40 Aerobic Blood Culture - Preliminary Blood - Venous - Lab Draw NO GROWTH AFTER 1 DAY Anaerobic Blood Culture - Preliminary NO GROWTH AFTER 1 DAY 09/30/20 16:27 Aerobic Blood Culture - Preliminary Blood - Venous NO GROWTH AFTER 1 DAY Anaerobic Blood Culture - Preliminary NO GROWTH AFTER 1 DAY Sepsis Event Note - Evaluation Sepsis Screening Result: No Definite Risk - Focused Exam Vital Signs: Vital Signs Temp Pulse Resp BP Pulse Ox 10/02/20 12:05 36.4 C 78 14 136/78 93 L 10/02/20 08:30 70 91 L 10/02/20 08:20 105/92 H 10/02/20 07:52 36.5 C 65 14 105/92 H 93 L 10/02/20 03:47 36.6 C 52 L 12 120/79 94 L - Problem List Review Problem List Initiated/Reviewed/Updated: Yes - My Orders Last 24 Hours: My Active Orders 10/02/20 08:55 hydrALAZINE [Apresoline] 10 mg PO Q4H PRN 10/02/20 09:00 Enoxaparin [Lovenox] 80 mg SUBCUT BID Lactated Ringers [Ringers, Lactated] 1,000 ml IV ASDIRECTED 10/03/20 05:00 CBC WITH AUTO DIFF [HEME] DAILY CMP [COMPREHENSIVE METABOLIC PN,CMP] [CHEM] DAILY CRP [C-REACTIVE PROTEIN] [CHEM] DAILY 10/04/20 05:00 CBC WITH AUTO DIFF [HEME] DAILY CMP [COMPREHENSIVE METABOLIC PN,CMP] [CHEM] DAILY CRP [C-REACTIVE PROTEIN] [CHEM] DAILY 10/05/20 05:00 CBC WITH AUTO DIFF [HEME] DAILY CMP [COMPREHENSIVE METABOLIC PN,CMP] [CHEM] DAILY CRP [C-REACTIVE PROTEIN] [CHEM] DAILY D-DIMER QUANTITATIVE [COAG] Routine 10/06/20 05:00 CBC WITH AUTO DIFF [HEME] DAILY CMP [COMPREHENSIVE METABOLIC PN,CMP] [CHEM] DAILY CRP [C-REACTIVE PROTEIN] [CHEM] DAILY 10/07/20 05:00 CBC WITH AUTO DIFF [HEME] DAILY CMP [COMPREHENSIVE METABOLIC PN,CMP] [CHEM] DAILY CRP [C-REACTIVE PROTEIN] [CHEM] DAILY 10/08/20 05:00 CBC WITH AUTO DIFF [HEME] DAILY CMP [COMPREHENSIVE METABOLIC PN,CMP] [CHEM] DAILY CRP [C-REACTIVE PROTEIN] [CHEM] DAILY - Plan Plan:: Assessment 49-year-old male with 14-day history of COVID-19 symptoms diagnosed 5 days ago and released by [facility] presents to the emergency department with hypoxemia and severe nonproductive cough. Patient's risk factors include hypertension. Covid infection Viral pneumonia Hypoxemia * 14-day history of symptoms * 5 days post positive test * Started on remdesivir on October 01 * Started dexamethasone on October 01, increased to 6 mg p.o. twice daily on October 01 (CRP went down to 13.4 from 24.3 yesterday) * Started Lovenox 80 mg twice daily today * Started ceftriaxone 2 g daily and a azithromycin 500 mg daily on September 30 * Currently on 3 L nasal cannula to keep SPO2 in the low 90s * Inhalers Hypertension Abnormal renal function * On lisinopril and hydrochlorothiazide at home * Creatinine trending down to normal Plan * Remdesivir, dexamethasone * Actemra 600 mg IV x1 * Rocephin 2 g daily x5 days, Zithromax 500 mg IV daily x3 * Pepcid, melatonin, zinc, vitamin D * As needed albuterol and DuoNeb * FiO2 to keep SPO2 greater than 87% * Follow CBC, CMP, mag, C-reactive protein, and D-dimer * VTE prophylaxis with Lovenox * CODE STATUS full code
[2020-10-02] MEDS: REMDESIVIR 100 MG in Sodium Chloride 0.9% 100 ML IV SCH (17:12)
[2020-10-02] MEDS: cefTRIAXone 2 GM in Sodium Chloride 0.9% 100 ML IV SCH (20:46)
[2020-10-02] MEDS: Azithromycin 500 MG in Sodium Chloride 0.9% 250 ML IV SCH (20:47)
[2020-10-02] MEDS: Melatonin 3 MG Tab PO SCH (20:50)
[2020-10-03] MEDS: Hydrochlorothiazide 12.5 MG Cap PO SCH (09:22)
[2020-10-03] MEDS: Zinc Sulfate 220 MG Cap PO SCH (09:22)
[2020-10-03] MEDS: Enoxaparin 80 MG/0.8 ML Syringe SUBCUT SCH (09:22)
[2020-10-03] MEDS: Lisinopril 10 MG Tab PO SCH (09:22)
[2020-10-03] MEDS: Famotidine 20 MG Tab PO SCH (09:22)
[2020-10-03] MEDS: Cholecalciferol (Vitamin D3) 5,000 UNIT Cap PO SCH (09:22)
[2020-10-03] MEDS: Dexamethasone 4 MG Tab PO SCH (09:23)
--- NOTE | 2020-10-03 10:16 | PCM.DCSUM1 ---
Discharge Summary - Hospital Course Free Text/Narrative:: 49-year-old male with 14-day history of COVID-19 symptoms diagnosed 5 days ago and released by [facility] presents to the emergency department with hypoxemia and severe nonproductive cough. Patient's risk factors include hypertension. Covid infection Viral pneumonia Hypoxemia * 14-day history of symptoms * 5 days post positive test * remdesivir on October 01 * Will stop dexamethasone on October 01, increased to 6 mg p.o. twice daily on October 01 (CRP went down to 13.4 from 24.3 yesterday) today. He will be discharged on prednisone 40 mg daily with a tapering (follow with the PCP to adjust the medication based on CRP levels). * Will discharge patient on Lovenox 80 mg twice daily today (follow with PCP to adjust the medication based on D-dimer levels) * Discontinue ceftriaxone 2 g daily and a azithromycin 500 mg daily on September 30 today * Currently on 3 L nasal cannula to keep SPO2 in the low 90s. Patient has been on room air for more than 24 hours * Inhalers Hypertension Abnormal renal function * On lisinopril and hydrochlorothiazide at home * Creatinine trending down to normal Vitamin D deficiency * vit D Plan * Actemra 600 mg IV x1 * Will discontinue Rocephin 2 g daily and Zithromax 500 mg IV daily x3 today * Pepcid, melatonin, zinc, vitamin D * As needed albuterol and DuoNeb * FiO2 to keep SPO2 greater than 87% * Follow CBC, CMP, mag, C-reactive protein, and D-dimer * VTE prophylaxis with Lovenox * CODE STATUS full code Patient does not have any complaints today. Denies headache, dizziness, nausea, vomiting, chest pain, abdominal pain, fever, chills, or dysuria. Vital signs are stable and acceptable. he has been on room air for more than 24 hours. He can walk without any problems. He will be discharged home with prednisone with tapering and Lovenox and other medications. Instructed the nurse to teach him to use Lovenox. Stop Lovenox and call PCP if you have bleeding. Patient needs to follow with PCP in 3 days. Repeat CBC, CMP, electrolytes, renal function, CRP and D-dimer in 3 days. Blood sugar may increase since taking steroid. Suggested to have diabetic diet. Do not drive until approval from MD. Call PCP for medical issues. Diagnosis: Stroke: No - Discharge Data Discharge Date: 10/03/20 Discharge Disposition: Home, Self-Care 01 Condition: Good - Referral to Home Health Primary Care Physician: Jared Gandhi MD - Patient Summary/Data Recommended Follow-up Testing/Procedures: follow with PCP in 3 days. Repeat CBC, CMP, electrolytes, renal function, CRP and D-dimer in 3 days. Blood sugar may increase since taking steroid. Suggested to have diabetic diet. Do not drive until approval from MD. Call PCP for medical issues. - Patient Instructions Diet: Diabetic Diet Activity: As Tolerated - Discharge Plan *PRESCRIPTION DRUG MONITORING PROGRAM REVIEWED*: Not Applicable *COPY OF PRESCRIPTION DRUG MONITORING REPORT IN PATIENT MALIA: Not Applicable Prescriptions/Med Rec: Calcitriol 0.5 mcg PO DAILY #30 capsule Enoxaparin [Lovenox] 80 mg SUBCUT BID #10 ml Famotidine [Pepcid] 20 mg PO BID #30 tablet predniSONE [Prednisone] 40 mg PO DAILY #90 tablet Zinc Sulfate [Zincate] 220 mg PO DAILY #30 cap Home Medications: Home Meds Lisinopril/Hydrochlorothiazide [Lisinopril-HCTZ 10-12.5 MG] 1 tab PO DAILY 09/30/20 [History] Calcitriol 0.5 mcg PO DAILY #30 capsule 10/03/20 [Rx] Enoxaparin [Lovenox] 80 mg SUBCUT BID #10 ml 10/03/20 [Rx] Famotidine [Pepcid] 20 mg PO BID #30 tablet 10/03/20 [Rx] Zinc Sulfate [Zincate] 220 mg PO DAILY #30 cap 10/03/20 [Rx] predniSONE [Prednisone] 40 mg PO DAILY #90 tablet 10/03/20 [Rx] Patient Handouts: COVID-19 Frequently Asked Questions, Enoxaparin injection, COVID-19: How to Protect Yourself and Others - [facility] Forms: ED Department Discharge Referrals: Jared Gandhi MD [Primary Care Provider] - (in 3 days) - Discharge Summary/Plan Comment DC Time >30 min.: Yes - General Info Date of Service: 10/03/20 Admission Dx/Problem (Free Text: Admission Diagnosis/Problem Admission Diagnosis/Problem Hypoxia Subjective Update: 49-year-old male with history of hypertension presents to the emergency depar tment with worsening nonproductive cough. Patient states that he started getting mild cough and sore throat on September 16. Last Saturday, September 24 he was seen at the walk-in clinic and chest x-ray was performed which was negative. Rapid Covid testing was performed also which was negative. Apparently patient was called the next day secondary to radiology things some concerning findings and a repeat test on Saturday was positive for COVID-19. Patient does not have any new complaints. Denies nausea, vomiting, diarrhea, fever, or chills. has been on RM > 24 hrs. - Review of Systems General: Reports: No Symptoms HEENT: Reports: No Symptoms Pulmonary: Reports: Cough Cardiovascular: Reports: No Symptoms Gastrointestinal: Reports: No Symptoms Genitourinary: Reports: No Symptoms Musculoskeletal: Reports: No Symptoms Skin: Reports: No Symptoms Neurological: Reports: No Symptoms Psychiatric: Reports: No Symptoms - Patient Data Vitals - Most Recent: Last Vital Signs Temp 36.7 C 10/03/20 08:05 Pulse 62 10/03/20 08:05 Resp 14 10/03/20 08:05 BP 140/96 H 10/03/20 09:22 Pulse Ox 93 L 10/03/20 08:05 Weight - Most Recent: 83.779 kg I&O - Last 24 hours: Intake & Output 10/02/20 10/03/20 10/03/20 22:59 06:59 14:59 Intake Total 1620 1868 420 Output Total 1000 1525 Balance 620 343 420 Lab Results - Last 24 hrs: Laboratory Results - last 24 hr 10/03/20 10/03/20 10/03/20 Range/Units 05:54 05:54 05:54 WBC 10.61 H (4.23-9.07) K/mm3 RBC 4.50 L (4.63-6.08) M/mm3 Hgb 14.3 (13.7-17.5) gm/dl Hct 43.2 (40.1-51.0) % MCV 96.0 H (79.0-92.2) fl MCH 31.8 (25.7-32.2) pg MCHC 33.1 (32.2-35.5) g/dl RDW Std Deviation 43.1 (35.1-43.9) fL Plt Count 380 H (163-337) K/mm3 MPV 9.5 (9.4-12.3) fl Neut % (Auto) 86.9 H (34.0-67.9) % Lymph % (Auto) 7.4 L (21.8-53.1) % Clarke % (Auto) 4.8 L (5.3-12.2) % Eos % (Auto) 0 L (0.8-7.0) Baso % (Auto) 0.1 (0.1-1.2) % Neut # (Auto) 9.22 H (1.78-5.38) K/mm3 Lymph # (Auto) 0.79 L (1.32-3.57) K/mm3 Clarke # (Auto) 0.51 (0.30-0.82) K/mm3 Eos # (Auto) 0.00 L (0.04-0.54) K/mm3 Baso # (Auto) 0.01 (0.01-0.08) K/mm3 Manual Slide Review Abnormal smear Sodium 146 H (136-145) mEq/L Potassium 4.2 (3.5-5.1) mEq/L Chloride 108 H (98-107) mEq/L Carbon Dioxide 25 (21-32) mEq/L Anion Gap 17.2 H (5-15) BUN 23 H (7-18) mg/dL Creatinine 1.0 (0.7-1.3) mg/dL Est Cr Clr Drug Dosing 90.24 mL/min Estimated GFR (MDRD) > 60 (>60) mL/min BUN/Creatinine Ratio 23.0 H (14-18) Glucose 132 H (74-106) mg/dL Calcium 9.0 (8.5-10.1) mg/dL Total Bilirubin 0.2 (0.2-1.0) mg/dL Direct Bilirubin < 0.05 (0.0-0.2) mg/dl AST 20 (15-37) U/L ALT 32 (16-63) U/L Alkaline Phosphatase 35 L (46-116) U/L C-Reactive Protein 6.4 H* (<1.0) mg/dL Total Protein 6.5 (6.4-8.2) g/dl Albumin 2.3 L (3.4-5.0) g/dl Globulin 4.2 gm/dL Albumin/Globulin Ratio 0.6 L (1-2) RENE Results - Last 24 hrs: Microbiology 09/30/20 16:40 Aerobic Blood Culture - Preliminary Blood - Venous - Lab Draw NO GROWTH AFTER 2 DAYS Anaerobic Blood Culture - Preliminary NO GROWTH AFTER 2 DAYS 09/30/20 16:27 Aerobic Blood Culture - Preliminary Blood - Venous NO GROWTH AFTER 2 DAYS Anaerobic Blood Culture - Preliminary NO GROWTH AFTER 2 DAYS Med Orders - Current: Current Medications Acetaminophen (Acetaminophen 325 Mg Tab) 975 mg PO Q6H PRN PRN Reason: Pain (Mild 1-3)/fever Albuterol (Albuterol 0.083% 2.5 Mg/3 Ml Neb Soln) 2.5 mg NEB Q2H PRN PRN Reason: Shortness Of Breath/wheezing Albuterol/Ipratropium (Albuterol/Ipratropium 3.0-0.5 Mg/3 Ml Neb Soln) 3 ml NEB Q4H PRN PRN Reason: Shortness Of Breath/wheezing Cholecalciferol (Cholecalciferol (Vitamin D3) 5,000 Unit Cap) 5,000 unit PO DAILY [facility] Last Admin: 10/03/20 09:22 Dose: 5,000 unit Documented by: Dexamethasone (Dexamethasone 4 Mg Tab) 6 mg PO Q12HR [facility] Stop: 10/05/20 09:01 Last Admin: 10/03/20 09:23 Dose: 6 mg Documented by: Enoxaparin Sodium (Enoxaparin 80 Mg/0.8 Ml Syringe) 80 mg SUBCUT BID [facility] Last Admin: 10/03/20 09:22 Dose: 80 mg Documented by: Famotidine (Famotidine 20 Mg Tab) 20 mg PO BID [facility] Last Admin: 10/03/20 09:22 Dose: 20 mg Documented by: Hydralazine HCl (Hydralazine 10 Mg Tab) 10 mg PO Q4H PRN PRN Reason: Hypertension Hydrochlorothiazide (Hydrochlorothiazide 12.5 Mg Cap) 12.5 mg PO DAILY [facility] Last Admin: 10/03/20 09:22 Dose: 12.5 mg Documented by: Remdesivir 100 mg/ Sodium (Chloride) 100 mls @ 100 mls/hr IV Q24H [facility] Stop: 10/04/20 18:59 Last Admin: 10/02/20 17:12 Dose: 100 mls/hr Documented by: Ceftriaxone Sodium 2 gm/ (Sodium Chloride) 100 mls @ 200 mls/hr IV Q24H [facility] Stop: 10/04/20 20:14 Last Admin: 10/02/20 20:46 Dose: 200 mls/hr Documented by: Lactated Ringer's (Ringers, Lactated) 1,000 mls @ 50 mls/hr IV ASDIRECTED [facility] Last Admin: 10/02/20 11:15 Dose: 50 mls/hr Documented by: Lisinopril (Lisinopril 10 Mg Tab) 10 mg PO DAILY [facility] Last Admin: 10/03/20 09:22 Dose: 10 mg Documented by: Melatonin (Melatonin 3 Mg Tab) 9 mg PO BEDTIME [facility] Last Admin: 10/02/20 20:50 Dose: 9 mg Documented by: Ondansetron HCl (Ondansetron 4 Mg/2 Ml Sdv) 4 mg IV Q4H PRN PRN Reason: Nausea/Vomiting Sodium Chloride (Sodium Chloride 0.9% 10 Ml Syringe) 10 ml FLUSH ASDIRECTED PRN PRN Reason: Keep Vein Open Last Admin: 09/30/20 16:20 Dose: 10 ml Documented by: Sodium Chloride (Sodium Chloride 0.9% 10 Ml Syringe) 10 ml FLUSH ASDIRECTED [facility] Last Admin: 09/30/20 17:41 Dose: 10 ml Documented by: Zinc Sulfate (Zinc Sulfate 220 Mg Cap) 220 mg PO DAILY [facility] Last Admin: 10/03/20 09:22 Dose: 220 mg Documented by: Discontinued Medications Acetaminophen (Acetaminophen 325 Mg Tab) 975 mg PO ONETIME ONE Stop: 09/30/20 16:05 Last Admin: 09/30/20 16:20 Dose: 975 mg Documented by: Dexamethasone (Dexamethasone 10 Mg/Ml Sdv) 6 mg IVPUSH ONETIME ONE Stop: 09/30/20 18:19 Last Admin: 09/30/20 18:29 Dose: 6 mg Documented by: Dexamethasone (Dexamethasone 4 Mg Tab) 6 mg PO Q24H [facility] Stop: 10/09/20 09:01 Last Admin: 10/01/20 12:04 Dose: Not Given Documented by: Enoxaparin Sodium (Enoxaparin 40 Mg/0.4 Ml Syringe) 40 mg SUBCUT DAILY [facility] Last Admin: 10/01/20 12:04 Dose: Not Given Documented by: Enoxaparin Sodium (Enoxaparin 40 Mg/0.4 Ml Syringe) 80 mg SUBCUT BID [facility] Last Admin: 10/01/20 21:23 Dose: 80 mg Documented by: Sodium Chloride (Normal Saline) 100 mls @ 60 mls/hr IV ASDIRECTED [facility] Last Admin: 09/30/20 17:40 Dose: 60 mls/hr Documented by: Remdesivir 200 mg/ Sodium (Chloride) 250 mls @ 250 mls/hr IV ONETIME ONE Stop: 09/30/20 18:19 Last Admin: 09/30/20 19:00 Dose: 250 mls/hr Documented by: Azithromycin 500 mg/ Sodium (Chloride) 250 mls @ 250 mls/hr IV Q24H [facility] Stop: 10/02/20 20:44 Last Admin: 10/02/20 20:47 Dose: 250 mls/hr Documented by: Tocilizumab 400 mg/Tocilizumab 200 mg/ Sodium Chloride 100 mls @ 100 mls/hr IV ONETIME ONE Stop: 10/01/20 13:59 Last Admin: 10/01/20 12:52 Dose: 100 mls/hr Documented by: Iopamidol (Iopamidol 755 Mg/Ml 100 Ml Bottle) 100 ml IVPUSH ONETIME ONE Stop: 09/30/20 17:02 Last Admin: 09/30/20 17:40 Dose: 100 ml Documented by: - Exam Physical Findings Comments:: General: Alert, Oriented, 4 HEENT: Conjunctiva Clear, Mucosa Moist & [place], Normal Nasal Septum Neck: Supple, Trachea Midline, 2 Lungs: Normal Respiratory Effort, Crackles (Throughout both lung romero)(improved) Cardiovascular: Regular Rate, Regular Rhythm GI/Abdominal Exam: Normal Bowel Sounds, Soft, Non-Tender, No Organomegaly, No Distention, No Abnormal Bruit, No Mass Back Exam: Normal Inspection, Full Range of Motion, NT Extremities: Normal Inspection, Normal Range of Motion, Non-Tender, No Pedal Edema, Normal Capillary Refill Peripheral Pulses: 2+: Posterior Tibial (L), Posterior Tibial (R), Dorsalis Pedis (L), Dorsalis Pedis (R) Skin: Warm, Dry, Intact Neuro Extensive - Mental Status: Alert, Oriented x3, Normal Mood/Affect, Normal Cognition, Memory Intact Neuro Extensive - Motor, Sensory, Reflexes: CN II-XII Intact, Normal Gait Psychiatric: Alert, Normal Affect, Normal Mood
== END 2020-10-03 13:17 | disposition home or self-care (01) | DRG 137 ==
LOC: JD.ED 15:17 → JD.MS 18:32
PROVIDERS: ADMIT Family Medicine; ATTEND Family Medicine
PROC: XW033E5 Introduction of Remdesivir Anti-infective into Peripheral Vein, Percutaneous Approach, New Technology Group 5 (ICD-10-PCS; principal; 2020-09-30)
DX: U07.1 COVID-19 (principal); J12.82 Pneumonia due to coronavirus disease 2019; I10 Essential (primary) hypertension; E55.9 Vitamin D deficiency, unspecified; R94.4 Abnormal results of kidney function studies; H54.7 Unspecified visual loss; Z79.52 Long term (current) use of systemic steroids; Z79.899 Other long term (current) drug therapy; Z90.89 Acquired absence of other organs; Z98.890 Other specified postprocedural states; Z90.49 Acquired absence of other specified parts of digestive tract
CPT/HCPCS: 36415; 36600; 71046; 71046-26; 71275; 71275-26; 80048; 80053; 80076; 81001; 82248; 82306; 82728; 82803; 83615; 83735; 83880; 84484; 85007; 85025; 85027; 85379; 85610; 85652; 85730; 86140; 87040; 93005; 93010; 94667; 94668; 94760; 94762; 99222; 99232; 99239; 99285; 99285-25; A9270-GY; J0456; J0696; J1100; J1650; J3262; J7050; J7120; J8540; Q9967

== ENCOUNTER 2023-07-24 21:42 | Emergency (ER) | payer BC, OTHER ==
[2023-07-24] MEDS ORDERED: methylPREDNISolone Sodium Succinate 125 MG/2 ML SDV IVPUSH ONE (22:03)
[2023-07-24] MEDS ORDERED: Sodium Chloride 0.9% 10 ML Syringe FLUSH PRN (22:03)
[2023-07-24] MEDS ORDERED: Famotidine 20 MG/2 ML SDV IVPUSH ONE (22:04)
== END 2023-07-24 22:48 | disposition home or self-care (01) ==
LOC: JD.ED 21:42
DX: T78.3XXA Angioneurotic edema, initial encounter (principal); I10 Essential (primary) hypertension; Z86.16 Personal history of COVID-19
CPT/HCPCS: 96374; 96375; 99283; J2930; J3490